=== PATIENT | female | born 1950 | race Caucasian/White ===

== ENCOUNTER 2016-10-17 07:18 | Inpatient (IN) | payer MEDICARE, OTHER ==
[2016-10-17] MEDS ORDERED: IPRATROPIUM/ALBUTEROL 0.5-2.5 MG/3 ML AMPUL NEB ONE ×2 (07:52→07:53)
--- NOTE | 2016-10-17 07:52 | ER Document Report ---
ED General - General Chief Complaint: Nausea Stated Complaint: NAUSEA/COUGH Time Seen by Provider: 10/17/16 07:34 Mode of Arrival: Ambulatory Information source: Patient Notes: 66-year-old female presents with recent diagnosis of bronchitis for which she was placed on initially Bactrim and then Cipro by her primary care physician. Patient admits to multiple episodes of nausea vomiting denies any chest pain admits shortness of breath TRAVEL OUTSIDE OF THE [place] IN LAST 30 DAYS: No - HPI Onset: Other - Three-day duration Onset/Duration: Persistent Quality of pain: No pain Severity: Moderate Pain Level: Denies Associated symptoms: Nonproductive cough, Fever, Shortness of breath Exacerbated by: Denies Relieved by: Denies Similar symptoms previously: Yes Recently seen / treated by doctor: Yes - Related Data Allergies/Adverse Reactions: Cephalosporins Allergy (Verified 10/17/16 07:22) Hives codeine [Codeine] Allergy (Verified 10/17/16 07:22) VOMITTING Past Medical History - Social History Smoking Status: Never Smoker Cigarette use (# per day): No Chew tobacco use (# tins/day): No Smoking Education Provided: No Family History: Reviewed & Not Pertinent Patient has suicidal ideation: No Patient has homicidal ideation: No - Past Medical History Cardiac Medical History: Reports: Hx Hypertension Denies: Hx Heart Attack Pulmonary Medical History: Denies: Hx Asthma Neurological Medical History: Denies: Hx Cerebrovascular Accident, Hx Seizures Renal/ Medical History: Denies: Hx Peritoneal Dialysis GI Medical History: Denies: Hx Hepatitis, Hx Hiatal Hernia, Hx Ulcer Infectious Medical History: Denies: Hx Hepatitis Past Surgical History: Denies: Hx Hysterectomy, Hx Mastectomy, Hx Open Heart Surgery, Hx Pacemaker Review of Systems - Review of Systems Notes: PHYSICAL EXAMINATION: GENERAL: Well-appearing, well-nourished and in no acute distress. HEAD: Atraumatic, normocephalic. EYES: Pupils equal round and reactive to light, extraocular movements intact, conjunctiva are normal. ENT: Nares patent, oropharynx clear without exudates. Moist mucous membranes. NECK: Normal range of motion, supple without lymphadenopathy LUNGS: Coarse wheezing all throughout HEART: Regular rate and rhythm without murmurs ABDOMEN: Soft, nontender, nondistended abdomen. No guarding, no rebound. No masses appreciated. Female : deferred Musculoskeletal: Normal range of motion, no pitting or edema. No cyanosis. NEUROLOGICAL: Cranial nerves grossly intact. Normal speech, normal gait. Normal sensory, motor exams PSYCH: Normal mood, normal affect. SKIN: Warm, Dry, normal turgor, no rashes or lesions noted. Physical Exam - Vital signs Vitals: Temp Pulse Resp BP Pulse Ox 97.4 F 77 24 H 221/156 H 93 10/17/16 07:24 10/17/16 07:24 10/17/16 07:24 10/17/16 07:24 10/17/16 07:24 Course - Re-evaluation Re-evalutation: 10/17/16 07:52 Patient is noted to be hypertensive, was placed on cardiac monitoring noted to have very peaked T waves, EKG was emergently ordered 10/17/16 09:01 10/17/16 09:02 Patient's potassium was not elevated, I am unsure of the cause of the peak T waves with the patient does not have any chest pain. She is noted to be severely hyponatremic, with nausea vomiting and pneumonia and hypoxemia I will admit the patient to the hospital service - Vital Signs Vital signs: Temp Pulse Resp BP Pulse Ox 97.4 F 77 24 H 221/156 H 93 10/17/16 07:24 10/17/16 07:24 10/17/16 07:24 10/17/16 07:24 10/17/16 07:24 - Laboratory Result Diagrams: 10/17/16 08:05 10/17/16 08:05 Laboratory results interpreted by me: 10/17/16 10/17/16 10/17/16 08:05 08:05 08:05 WBC 10.8 H Hgb 15.6 H Seg Neutrophils % 84.9 H Lymphocytes % 7.3 L Absolute Neutrophils 9.2 H Sodium 116.6 L* Chloride 74 L BUN 6 L Glucose 216 H AST 63 H Creatine Kinase 158 H CK-MB (CK-2) 5.51 H Total Protein 8.3 H - Diagnostic Test Radiology reviewed: Image reviewed, Reports reviewed - Pneumonia - EKG Interpretation by Me EKG shows normal: Sinus rhythm, [place], Intervals, QRS Complexes, ST-T Waves - Very peaked and elevated T waves noted all throughout When compared to previous EKG there are: Previous EKG unavailable Critical Care Note - Critical Care Note Total time excluding time spent on procedures (mins): 40 Comments: minutes of critical care time spent in direct contact evaluating and reevaluating the patient, treating symptoms, reviewing labs and studies and speaking with family and consultants excluding any procedures Discharge - Discharge Clinical Impression: peaked T waves, Hyponatremia Hypertension Qualifiers: Hypertension type: essential hypertension Qualified Code(s): I10 - Essential ( primary) hypertension Pneumonia Qualifiers: Pneumonia type: due to unspecified organism Laterality: right Lung location: lower lobe of lung Qualified Code(s): J18.1 - Lobar pneumonia, unspecified organism Nausea and vomiting Qualifiers: Vomiting type: unspecified Vomiting Intractability: non-intractable Qualified Code(s): R11.2 - Nausea with vomiting, unspecified Condition: Stable Disposition: ADMITTED INPATIENT Admitting Provider: Hospitalist Unit Admitted: Telemetry
[2016-10-17] MEDS ORDERED: NORMAL SALINE 1000 ML 1,000 ML IV ONE (07:53)
[2016-10-17] MEDS ORDERED: ONDANSETRON HCL INJ/PF 4 MG/2 ML SDV IV ONE (07:53)
[2016-10-17 08:22] LABS: ABSOLUTE LYMPHOCYTES (AUTO) 0.8 10^3/uL (0.5-4.7); ABSOLUTE MONOCYTES (AUTO) 0.8 10^3/uL (0.1-1.4); ABSOLUTE NEUT (AUTO) 9.2 10^3/uL (1.7-8.2); BASOPHILS % (AUTO) 0.5 % (0-2); EOSINOPHILS % (AUTO) 0.1 % (0-6); HEMATOCRIT 44.9 % (36.0-47.0); HEMOGLOBIN 15.6 g/dL (12.0-15.5); HGB HCT DIFFERENCE 1.9; LYMPHOCYTES % (AUTO) 7.3 % (13-45); MEAN CORPUSCULAR HEMOGLOBIN 31.5 pg (27.0-33.4); MEAN CORPUSCULAR HGB CONC 34.7 g/dL (32.0-36.0); MEAN CORPUSCULAR VOLUME 91 fl (80-97); MONOCYTES % (AUTO) 7.2 % (3-13); RED BLOOD COUNT 4.95 10^6/uL (3.72-5.28); RED CELL DISTRIBUTION WIDTH 12.8 % (11.5-14.0); SEGMENTED NEUTROPHILS % (AUTO) 84.9 % (42-78); WHITE BLOOD COUNT 10.8 10^3/uL (4.0-10.5)
[2016-10-17 08:35] LABS: ALANINE AMINOTRANSFERASE 48 U/L (9-52); ALBUMIN 4.7 g/dL (3.5-5.0); ALKALINE PHOSPHATASE 113 U/L (38-126); ANION GAP 17 (5-19); ASPARTATE AMINO TRANSFERASE 63 U/L (14-36); BILIRUBIN,DIRECT 0.4 mg/dL (0.0-0.4); BILIRUBIN,TOTAL 0.9 mg/dL (0.2-1.3); BLOOD UREA NITROGEN 6 mg/dL (7-20); CARBON DIOXIDE 26 mmol/L (22-30); CHLORIDE 74 mmol/L (98-107); CREATINE KINASE 158 U/L (30-135); CREATININE RESULT 0.52 mg/dL (0.52-1.25); GLUCOSE 216 mg/dL (75-110); POTASSIUM 4.7 mmol/L (3.6-5.0); TOTAL PROTEIN 8.3 g/dL (6.3-8.2)
[2016-10-17 08:38] LABS: SODIUM 116.6 mmol/L (137-145)
[2016-10-17] MEDS ORDERED: NORMAL SALINE 1000 ML 1,000 ML IV PRN (08:39)
[2016-10-17 08:47] LABS: CREATINE KINASE MB 5.51 ng/mL (<4.55); TROPONIN I < 0.012 ng/mL
[2016-10-17] MEDS ORDERED: LEVOFLOXACIN 750 MG/D5W RTU 150 ML IV ONE (09:02)
[2016-10-17] MEDS ORDERED: ALBUTEROL SULFATE 0.083% NEB 2.5 MG/3 ML AMPUL NEB PRN (09:19)
[2016-10-17] MEDS ORDERED: HYDRALAZINE HCL INJ/PF 20 MG/1 ML SDV IV PRN (09:20)
[2016-10-17] MEDS ORDERED: HYDRALAZINE HCL INJ/PF 20 MG/1 ML SDV IV ONE (09:20)
[2016-10-17] MEDS ORDERED: ACETAMINOPHEN 325 MG TABLET PO PRN (09:22)
[2016-10-17] MEDS ORDERED: LISINOPRIL 10 MG TABLET PO SCH (10:00)
[2016-10-17 10:09] LABS: FREE T3 4.33 pg/mL (2.77-5.27)
[2016-10-17] MEDS: POTASSI CL 40 MEQ/NS 1L 1,000 ML IV PRN ×2 (10:10→19:49)
[2016-10-17 10:22] LABS: THYROID STIMULATING HORMONE 2.77 uIU/mL (0.47-4.68)
[2016-10-17] MEDS ORDERED: LORAZEPAM INJ 2 MG/1 ML VIAL IV ONE (11:09)
[2016-10-17] MEDS: DOXYCYCLINE HYCLATE 100 MG TABLET PO SCH ×2 (11:23→21:34)
[2016-10-17] MEDS: METOPROLOL SUCCINATE 50 MG TAB.SR.24H PO SCH ×2 (11:24→21:34)
[2016-10-17] MEDS ORDERED: DEXTROSE 40% GEL 15 GM TUBE PO PRN ×2 (14:29)
[2016-10-17] MEDS ORDERED: INSULIN LISPRO 100 UNIT/ML 3 ML VIAL SUBCUT PRN (14:29)
[2016-10-17] MEDS ORDERED: DEXTROSE 50%-WATER 25 GM/50 ML DISP.SYRIN IV PRN ×2 (14:29)
[2016-10-17] MEDS ORDERED: GLUCAGON,HUMAN RECOMB 1 MG INJ IM PRN (14:29)
--- NOTE | 2016-10-17 14:31 | PDOC H&P ---
History of Present Illness Admission Date/PCP: 10/17/16 09:22 PRATIMA GRAJEDA MD Patient complains of: Nausea and vomiting History of Present Illness: ELEAZAR MILLER is a 66 year old female that presents to the emergency department for nausea and vomiting. Patient has been sick for the past week with bronchitis. She was treated on Sunday with Bactrim and states that she took 1 pill and this made her feel "sick" so this was discontinued. She was then started on Cipro. She has felt worse despite treatment with this antibiotic. 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 Patient was noted to have slightly elevated CK and CK-MB level. Troponin was normal. EKG showed no ST elevation or depression. Patient denied chest pain. She is having shortness of breath secondary to acute bronchitis. He is also presenting with nausea and vomiting. Past Medical History Cardiac Medical History: Reports: Hypertension Denies: Myocardial Infarction Pulmonary Medical History: Denies: Asthma Neurological Medical History: Denies: Seizures GI Medical History: Denies: Hepatitis, Hiatal Hernia Hematology: Denies: Anemia, Sickle Cell Disease Past Surgical History Past Surgical History: Denies: Amputation, Hysterectomy, Mastectomy, Pacemaker Social History Information Source: Patient Lives with: Spouse/Significant other Smoking Status: Current Every Day Smoker Frequency of Alcohol Use: None Hx Recreational Drug Use: No Hx Prescription Drug Abuse: No - Advance Directive Resuscitation Status: Full Code Family History Family History: Reviewed & Not Pertinent Parental Family History Reviewed: Yes Children Family History Reviewed: Yes Sibling(s) Family History Reviewed.: Yes Medication/Allergy Home Medications: Cholecalciferol (Vitamin D3) [Vitamin D3 1000 Unit Tablet] 1,000 unit PO DAILY 09/30/12 Diphenhydramine HCl [Benadryl 25 Mg Capsule] 25 mg PO BID 09/30/12 Enalapril Maleate [Vasotec 20 mg Tablet] 20 mg PO DAILY 09/30/12 Metoprolol Succinate [Toprol XL 100 mg Tablet] 100 mg PO DAILY 09/30/12 Allergies/Adverse Reactions: Cephalosporins Allergy (Verified 10/17/16 07:22) Hives codeine [Codeine] Allergy (Verified 10/17/16 07:22) VOMITTING Corticosteroids (Glucocorticoids) Adverse Reaction (Intermediate, Verified 10/17 14:03) Psychosis Review of Systems Constitutional: ABSENT: chills, fever(s), headache(s), weight gain, weight loss Eyes: ABSENT: visual disturbances Ears: ABSENT: hearing changes Cardiovascular: PRESENT: dyspnea on exertion. ABSENT: chest pain, edema, orthropnea, palpitations Respiratory: PRESENT: cough, dyspnea. ABSENT: hemoptysis Gastrointestinal: ABSENT: abdominal pain, constipation, diarrhea, hematemesis, hematochezia, nausea, vomiting Genitourinary: ABSENT: dysuria, hematuria Musculoskeletal: ABSENT: joint swelling Integumentary: ABSENT: rash, wounds Neurological: ABSENT: abnormal gait, abnormal speech, confusion, dizziness, focal weakness, syncope Psychiatric: ABSENT: anxiety, depression, homidical ideation, suicidal ideation Endocrine: ABSENT: cold intolerance, heat intolerance, polydipsia, polyuria Hematologic/Lymphatic: ABSENT: easy bleeding, easy bruising Physical Exam Vital Signs: Temp Pulse Resp BP Pulse Ox 97.4 F 72 22 H 135/84 H 96 10/17/16 07:24 10/17/16 13:43 10/17/16 13:43 10/17/16 12:01 10/17/16 13:43 PHYSICAL EXAM: GENERAL: Appears well, no acute distress HEENT: Normocephalic, no scleral icterus, conjunctiva clear, EOEM intact, PERRLA , moist mucous membranes NECK: trachea midline, no thyromegally RESPIRATORY: Bilateral wheezes CARDIAC: Regular rate and rhythm, no murmur/cinthia/rub ABDOMEN: Soft, no distension, no tenderness, no guarding, normal bowel sounds, negative Perez sign RECTAL: deferred : deferred EXTREMITIES: No edema, cyanosis, clubbing MUSCULOSKELETAL: No joint swelling or deformity VASCULAR: normal peripheral pulses NEUROLOGIC: Alert, oriented to person/place/time, normal speech, cranial nerves grossly intact, 5/5 strength in all extremities, tactile sensation intact in all extremities SKIN: No rash, no wounds, no worrisome skin lesions PSYCHIATRIC: Normal mood, normal affect Results Laboratory Results: Labs- All tests 24 hr 10/17/16 10/17/16 10/17/16 08:05 08:05 08:05 WBC 10.8 H RBC 4.95 Hgb 15.6 H Hct 44.9 MCV 91 MCH 31.5 MCHC 34.7 RDW 12.8 Plt Count 343 Seg Neutrophils % 84.9 H Lymphocytes % 7.3 L Monocytes % 7.2 Eosinophils % 0.1 Basophils % 0.5 Absolute Neutrophils 9.2 H Absolute Lymphocytes 0.8 Absolute Monocytes 0.8 Absolute Eosinophils 0.0 Absolute Basophils 0.0 Sodium 116.6 L* Potassium 4.7 Chloride 74 L Carbon Dioxide 26 Anion Gap 17 BUN 6 L Creatinine 0.52 Est GFR ( Amer) > 60 Est GFR (Non-Af Amer) > 60 Glucose 216 H Calcium 10.0 Total Bilirubin 0.9 Direct Bilirubin 0.4 Indirect Bilirubin Not Reportable Neonat Total Bilirubin Not Reportable AST 63 H ALT 48 Alkaline Phosphatase 113 Creatine Kinase 158 H CK-MB (CK-2) 5.51 H Troponin I < 0.012 Total Protein 8.3 H Albumin 4.7 TSH Free T4 Free T3 pg/mL 10/17/16 08:05 WBC RBC Hgb Hct MCV MCH MCHC RDW Plt Count Seg Neutrophils % Lymphocytes % Monocytes % Eosinophils % Basophils % Absolute Neutrophils Absolute Lymphocytes Absolute Monocytes Absolute Eosinophils Absolute Basophils Sodium Potassium Chloride Carbon Dioxide Anion Gap BUN Creatinine Est GFR ( Amer) Est GFR (Non-Af Amer) Glucose Calcium Total Bilirubin Direct Bilirubin Indirect Bilirubin Neonat Total Bilirubin AST ALT Alkaline Phosphatase Creatine Kinase CK-MB (CK-2) Troponin I Total Protein Albumin TSH 2.77 Free T4 1.79 Free T3 pg/mL 4.33 Impressions: Chest/Abdomen CTA 10/17/16 00:00 IMPRESSION: No CT angio evidence of acute pulmonary emboli or thoracic aortic dissection Obstructive lung disease Chest X-Ray 10/17/16 07:34 IMPRESSION: Obstructive lung disease Left lower lateral rib fractures age indeterminate Assessment & Plan - Diagnosis (1) Hyponatremia Is this a current diagnosis for this admission?: YesPlan: Patient likely has symptomatic hyponatremia. I will discontinue spironolactone as this is the only potential causative medication. Administer normal saline. Follow-up chemistry panels. CTA of chest negative for mass lesion. TSH normal. (2) Nausea & vomiting Qualifiers: Vomiting type: unspecified Vomiting Intractability: non-intractable Qualified Code(s): R11.2 - Nausea with vomiting, unspecified Is this a current diagnosis for this admission?: YesPlan: Possibly secondary to symptomatic hyponatremia. That being said patient has elevated CK and CK-MB levels. I would like to repeat cardiac enzymes every 6 hours 3 sets. (3) Abnormal cardiac enzyme level Is this a current diagnosis for this admission?: YesPlan: Repeat EKG and cardiac enzymes. Consult Dr. Salomon of cardiology. (4) Acute bronchitis Is this a current diagnosis for this admission?: YesPlan: Doxycycline. Pulmicort. Scheduled duo nebs. When necessary albuterol nebulized treatment. (5) Hyperglycemia Is this a current diagnosis for this admission?: YesPlan: Place patient on Accu-Cheks and sliding scale insulin. Check hemoglobin A1c. (6) Hypertension Qualifiers: Hypertension type: essential hypertension Qualified Code(s): I10 - Essential (primary) hypertension Is this a current diagnosis for this admission?: YesPlan: Continue metoprolol and enalapril. Discontinue spironolactone secondary to hyponatremia. - Time Time Spent: Greater than 70 Minutes
[2016-10-17 15:40] LABS: CREATINE KINASE MB 8.7 ng/mL (<4.55); TROPONIN I 0.024 ng/mL
[2016-10-17] MEDS: IPRATROPIUM/ALBUTEROL 0.5-2.5 MG/3 ML AMPUL NEB SCH (19:50)
[2016-10-17] MEDS: ONDANSETRON HCL INJ/PF 4 MG/2 ML SDV IV PRN (20:00)
[2016-10-17] MEDS: BUDESONIDE NEB 0.5 MG/2 ML AMPUL NEB SCH (20:01)
[2016-10-17 20:08] LABS: ANION GAP 10 (5-19); BLOOD UREA NITROGEN 5 mg/dL (7-20); CALCIUM 8.5 mg/dL (8.4-10.2); CARBON DIOXIDE 25 mmol/L (22-30); CHLORIDE 84 mmol/L (98-107); CREATININE RESULT 0.55 mg/dL (0.52-1.25); GLUCOSE 115 mg/dL (75-110); POTASSIUM 5.4 mmol/L (3.6-5.0)
[2016-10-17 20:16] LABS: SODIUM 118.5 mmol/L (137-145)
[2016-10-17 20:17] LABS: CREATINE KINASE MB 8.37 ng/mL (<4.55); TROPONIN I 0.022 ng/mL
--- NOTE | 2016-10-17 22:14 | EKG REPORT ---
SEVERITY:- BORDERLINE ECG - SINUS RHYTHM BORDERLINE R WAVE PROGRESSION, ANTERIOR LEADS : Confirmed by: Radha Kirby MD 17-Oct-2016 22:13:51
[2016-10-17] MEDS: NORMAL SALINE 1000 ML 1,000 ML IV PRN (22:41)
--- NOTE | 2016-10-17 22:50 | PDOC CONSULTATION ---
Consultation Consult Date: 10/17/16 Attending physician:: DEBORA BELTRE Consult reason:: Dyspnea, hypoxemia, abnormal cardiac enzymes History of Present Illness Admission Date/PCP: 10/17/16 09:22 PRATIMA GRAJEDA MD Patient complains of: Dyspnea History of Present Illness: ELEAZAR MILLER is a 66 year old female admitted through the emergency department for nausea and vomiting. Patient has been sick for the past week with bronchitis. She was treated on Sunday with Bactrim and states that she took 1 pill and this made her feel "sick" so this was discontinued. She was then started on Cipro. She has felt worse despite treatment with this antibiotic. 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 Patient has noted increasing dyspnea and also cough. Also noted increasing wheezing. Patient was noted to have slightly elevated CK and CK-MB level. Troponin was normal. EKG showed no ST elevation or depression. Patient denied chest pain. She is having shortness of breath secondary to acute exacerbation of underlying pulmonary disease. She is also presenting with nausea and vomiting. I was asked to evaluate patient because of abnormal cardiac enzymes and dyspnea. Past Medical History Cardiac Medical History: Reports: Hypertension Denies: Myocardial Infarction Pulmonary Medical History: Reports: Chronic Obstructive Pulmonary Disease (COPD) Denies: Asthma Neurological Medical History: Denies: Seizures GI Medical History: Denies: Hepatitis, Hiatal Hernia Hematology: Denies: Anemia, Sickle Cell Disease Past Surgical History Past Surgical History: Denies: Amputation, Hysterectomy, Mastectomy, Pacemaker Social History Information Source: Patient Lives with: Spouse/Significant other Smoking Status: Current Every Day Smoker Cigarettes Packs Per Day: 0.5 Number of Years Smokin Last Time Smoked: 10/16/16 Frequency of Alcohol Use: None Hx Recreational Drug Use: No Hx Prescription Drug Abuse: No - Advance Directive Resuscitation Status: Full Code Family History Family History: Reviewed & Not Pertinent Parental Family History Reviewed: Yes Children Family History Reviewed: Yes Sibling(s) Family History Reviewed.: Yes Medication/Allergy Home Medications: Enalapril Maleate [Vasotec 20 mg Tablet] 20 mg PO DAILY 09/30/12 Metoprolol Succinate [Toprol XL 100 mg Tablet] 100 mg PO Q12 09/30/12 Montelukast Sodium [Singulair 10 mg Tablet] 10 mg PO QHS 10/18/16 Spironolactone [Aldactone 25 mg Tablet] 25 mg PO DAILY 10/18/16 Allergies/Adverse Reactions: Cephalosporins Allergy (Verified 10/17/16 07:22) Hives codeine [Codeine] Allergy (Verified 10/17/16 07:22) VOMITTING Corticosteroids (Glucocorticoids) Adverse Reaction (Intermediate, Verified 10/17 14:03) Psychosis Review of Systems Constitutional: ABSENT: chills, fever(s), headache(s), weight gain, weight loss Eyes: ABSENT: visual disturbances Ears: ABSENT: hearing changes Cardiovascular: PRESENT: dyspnea on exertion, edema, orthropnea. ABSENT: chest pain, palpitations Respiratory: PRESENT: as per HPI. ABSENT: cough, hemoptysis Gastrointestinal: ABSENT: abdominal pain, constipation, diarrhea, hematemesis, hematochezia, nausea, vomiting Genitourinary: ABSENT: dysuria, hematuria Musculoskeletal: ABSENT: joint swelling Integumentary: ABSENT: rash, wounds Neurological: ABSENT: abnormal gait, abnormal speech, confusion, dizziness, focal weakness, syncope Psychiatric: ABSENT: anxiety, depression, homidical ideation, suicidal ideation Endocrine: ABSENT: cold intolerance, heat intolerance, polydipsia, polyuria Hematologic/Lymphatic: ABSENT: easy bleeding, easy bruising Physical Exam Vital Signs: Temp Pulse Resp BP Pulse Ox 98.2 F 84 22 H 143/75 H 98 10/17/16 15:20 10/17/16 15:20 10/17/16 15:20 10/17/16 15:20 10/17/16 15:20 Intake & Output 10/16/16 10/17/16 10/18/16 06:59 06:59 06:59 Intake Total 870 Balance 870 Weight 46.8 kg General appearance: PRESENT: no acute distress, well-developed, well-nourished Head exam: PRESENT: atraumatic, normocephalic Eye exam: PRESENT: conjunctiva pink, EOMI, PERRLA. ABSENT: scleral icterus Ear exam: PRESENT: normal external ear exam Mouth exam: PRESENT: moist, tongue midline Neck exam: ABSENT: carotid bruit, JVD, lymphadenopathy, thyromegaly Respiratory exam: PRESENT: rales, rhonchi, wheezes - Bilateral, other - no dullness on percussion Cardiovascular exam: PRESENT: RRR, +S1, +S2, systolic murmur - 2/6 SIMONE aortic area. 1/6 jones systolic murmur mitral area.. ABSENT: diastolic murmur, gallop, rubs Pulses: PRESENT: normal dorsalis pedis pul Vascular exam: PRESENT: normal capillary refill GI/Abdominal exam: PRESENT: normal bowel sounds, soft. ABSENT: distended, guarding, mass, organolmegaly, rebound, tenderness Rectal exam: PRESENT: deferred Extremities exam: PRESENT: full ROM. ABSENT: calf tenderness, clubbing, pedal edema Neurological exam: PRESENT: alert, awake, oriented to person, oriented to place , oriented to time, oriented to situation, CN II-XII grossly intact. ABSENT: motor sensory deficit Psychiatric exam: PRESENT: appropriate affect, normal mood. ABSENT: homicidal ideation, suicidal ideation Skin exam: PRESENT: dry, intact, warm. ABSENT: cyanosis, rash Results Laboratory Results: 10/17/16 19:35 10/17/16 10/17/16 14:37 19:35 Sodium 118.5 L* Potassium 5.4 H Chloride 84 L Carbon Dioxide 25 Anion Gap 10 BUN 5 L Creatinine 0.55 Est GFR ( Amer) > 60 Est GFR (Non-Af Amer) > 60 Glucose 115 H Serum Osmolality 245 L Calcium 8.5 10/17/16 10/17/16 10/17/16 14:37 14:37 19:35 Creatine Kinase 273 H 288 H CK-MB (CK-2) 8.70 H Troponin I 0.024 10/17/16 19:35 Creatine Kinase CK-MB (CK-2) 8.37 H Troponin I 0.022 EKG Comments: NSR, No acute ST-T changes Impressions: Chest/Abdomen CTA 10/17/16 00:00 IMPRESSION: No CT angio evidence of acute pulmonary emboli or thoracic aortic dissection Obstructive lung disease Chest X-Ray 10/17/16 07:34 IMPRESSION: Obstructive lung disease Left lower lateral rib fractures age indeterminate Assessment & Plan - Diagnosis (1) Abnormal cardiac enzyme level Is this a current diagnosis for this admission?: Yes (2) Dyspnea Qualifiers: Dyspnea type: dyspnea on exertion Qualified Code(s): R06.09 - Other forms of dyspnea Is this a current diagnosis for this admission?: Yes (3) Hypertension Qualifiers: Hypertension type: essential hypertension Qualified Code(s): I10 - Essential (primary) hypertension Is this a current diagnosis for this admission?: Yes (4) Nausea & vomiting Qualifiers: Vomiting type: unspecified Vomiting Intractability: non-intractable Qualified Code(s): R11.2 - Nausea with vomiting, unspecified Is this a current diagnosis for this admission?: Yes (5) Hyponatremia Is this a current diagnosis for this admission?: Yes (6) Multiple fractures of ribs Qualifiers: Laterality: left Fracture healing: with delayed healing Is this a current diagnosis for this admission?: Yes - Notes Notes: Abnormal cardiac enzymes elevation most likely related to either rib fracture or respiratory muscle fatigue. 2 D echo ordered to evaluate dyspnea. Abnormal cardiac enzyme, this is most likely related to diaphragmatic fatigue, possible rib fracture. Troponin elevation unremarkable. Total CK and CK-MBs have elevated. Patient does have significant pulmonary issues at this point. Dyspnea: This is predominantly due to asthma/COPD exacerbation. BNP level, reviewed chest x-ray, 2D echocardiogram to rule out any CHF and cardiac cause of dyspnea. Hypertension: Blood pressure under reasonable control. Nausea vomiting: This is improved by patient. Hyponatremia: It is a significant problem. Most likely related to COPD exacerbation. Recommend fluid restriction. May consider tolvaptan therapy if sodium does not improve. Discussed with patient's . Management plans discussed with hospitalist and other involved personnel. - Time Time Spent: 30 to 50 Minutes - CODE STATUS was discussed, patient remains full code. Surrogate decision-maker's . Multiple medical problems were addressed. More than 50% of the time spent coordinating care, discussing management plans with involved caregivers. Management plans discussed with involved personnels. Medical decision making was of moderate to high complexity , patient's has multiple severe comorbidities. Medications reviewed and adjusted accordingly: Yes
[2016-10-17 23:23] LABS: ANION GAP 10 (5-19); BLOOD UREA NITROGEN 5 mg/dL (7-20); CALCIUM 8.8 mg/dL (8.4-10.2); CARBON DIOXIDE 26 mmol/L (22-30); CHLORIDE 84 mmol/L (98-107); CREATININE RESULT 0.59 mg/dL (0.52-1.25); GLUCOSE 116 mg/dL (75-110); POTASSIUM 5.3 mmol/L (3.6-5.0)
[2016-10-18 00:14] LABS: SODIUM 119.6 mmol/L (137-145)
[2016-10-18 01:54] LABS: ABSOLUTE MONOCYTES (AUTO) 0.8 10^3/uL (0.1-1.4); ABSOLUTE NEUT (AUTO) 7.2 10^3/uL (1.7-8.2); BASOPHILS % (AUTO) 0.2 % (0-2); HEMATOCRIT 37.9 % (36.0-47.0); HGB HCT DIFFERENCE 0.5; LYMPHOCYTES % (AUTO) 10.7 % (13-45); MEAN CORPUSCULAR HEMOGLOBIN 31.3 pg (27.0-33.4); MEAN CORPUSCULAR HGB CONC 33.9 g/dL (32.0-36.0); MEAN CORPUSCULAR VOLUME 92 fl (80-97); MONOCYTES % (AUTO) 9.4 % (3-13); RED CELL DISTRIBUTION WIDTH 12.9 % (11.5-14.0); SEGMENTED NEUTROPHILS % (AUTO) 79.7 % (42-78)
[2016-10-18 01:59] LABS: BLOOD UREA NITROGEN 5 mg/dL (7-20); CARBON DIOXIDE 25 mmol/L (22-30); CHLORIDE 84 mmol/L (98-107); CREATININE RESULT 0.53 mg/dL (0.52-1.25); GLUCOSE 111 mg/dL (75-110); POTASSIUM 5.4 mmol/L (3.6-5.0)
[2016-10-18 02:00] LABS: HEMOGLOBIN 12.8 g/dL (12.0-15.5)
[2016-10-18 02:01] LABS: ANION GAP 8 (5-19)
[2016-10-18 02:21] LABS: CREATINE KINASE MB 7.04 ng/mL (<4.55); TROPONIN I 0.015 ng/mL
[2016-10-18 02:25] LABS: SODIUM 117.3 mmol/L (137-145)
[2016-10-18] MEDS ORDERED: PROMETHAZINE HCL 25 MG SUPP.RECT PR PRN (03:10)
[2016-10-18 03:42] LABS: BLOOD UREA NITROGEN 5 mg/dL (7-20); CALCIUM 8.8 mg/dL (8.4-10.2); CARBON DIOXIDE 24 mmol/L (22-30); CHLORIDE 85 mmol/L (98-107); CREATININE RESULT 0.48 mg/dL (0.52-1.25); GLUCOSE 117 mg/dL (75-110); POTASSIUM 5.1 mmol/L (3.6-5.0)
[2016-10-18 03:48] LABS: ANION GAP 7 (5-19); SODIUM 115.9 mmol/L (137-145)
[2016-10-18] MEDS: ONDANSETRON HCL INJ/PF 4 MG/2 ML SDV IV PRN (04:02)
[2016-10-18] MEDS: ENOXAPARIN SODIUM INJ 40 MG/0.4 ML DISP.SYRIN SUBCUT SCH (08:00)
[2016-10-18] MEDS: BUDESONIDE NEB 0.5 MG/2 ML AMPUL NEB SCH ×2 (08:00→20:23)
[2016-10-18] MEDS: IPRATROPIUM/ALBUTEROL 0.5-2.5 MG/3 ML AMPUL NEB SCH ×2 (08:00→20:22)
[2016-10-18] MEDS: ENALAPRIL MALEATE 10 MG TABLET PO SCH (10:00)
[2016-10-18] MEDS: DOXYCYCLINE HYCLATE 100 MG TABLET PO SCH ×2 (10:00→22:22)
[2016-10-18] MEDS: METOPROLOL SUCCINATE 50 MG TAB.SR.24H PO SCH ×2 (10:00→22:22)
[2016-10-18] MEDS ORDERED: HYDRALAZINE HCL 25 MG TABLET ONE (12:48)
[2016-10-18] MEDS ORDERED: LORAZEPAM INJ 2 MG/1 ML VIAL ONE (12:54)
--- NOTE | 2016-10-18 17:18 | EKG REPORT ---
SEVERITY:- ABNORMAL ECG - SINUS ARRHYTHMIA, RATE 62-90 CONSIDER ANTERIOR INFARCT ABNORMAL T, CONSIDER ISCHEMIA, ANT-LAT LEADS VERSUS HYPERKALEMIA : Confirmed by: Radha Kirby MD 18-Oct-2016 09:11:31
--- NOTE | 2016-10-18 18:48 | XCELERA REPORT ---
[address] [address] Transthoracic Echocardiogram Report Name: ELEAZAR MLILER Age: 66 yrs Gender: Female : 1950 Patient Status: Inpatient Patient Location: [id number]\S\305\S\A Study Date: 10/18/2016 03:51 PM Height: 66 in Weight: 103 lb BSA: 1.5 m2 Procedure: A complete two-dimensional transthoracic echocardiogram was performed (2D, M-mode, spectral and color flow Doppler). The study was technically difficult with many images being suboptimal in quality. Reason For Study: abnormal cardiac enzymes Ordering Physician: Jose A Salomon Performed By: Dhiraj Moore Interpretation Summary The left ventricular ejection fraction is normal. Doppler measurements suggest pseudonormalized left ventricular relaxation, which is associated with grade II/IV or mild to moderate diastolic dysfunction There is mild concentric left ventricular hypertrophy. The left ventricle is grossly normal size. Wall motion cannot be accurately commented on, but no definite regional wall motion abnormalities noted. The right ventricular systolic function is normal. The right atrium is normal in size Borderline left atrial enlargement. There is no mitral valve stenosis. There is a trace amount of mitral regurgitation There is no aortic valve stenosis No aortic regurgitation is present. There is a mild amount of tricuspid regurgitation There is mild pulmonary hypertension by echo Right ventricular systolic pressure is estimated to be elevated at 40- 50mmHg. The aortic root is not well visualized but is probably normal size. The inferior vena cava appeared normal and decreased > 50% with respiration (RAP 5-10 mmHg) Minimal pericardial effusion. MMode/2D Measurements \T\ Calculations RVDd: 1.6 cm LVIDd: 3.7 cm FS: 46.8 % Ao root diam: 2.9 cm IVSd: 0.95 cm LVIDs: 2.0 cm EDV(Teich): 59.4 ml LVPWd: 0.91 cm ESV(Teich): 12.5 ml Ao root area: 6.5 cm2 EF(Teich): 79.0 % LA dimension: 2.6 cm Doppler Measurements \T\ Calculations MV E max mary: MV P1/2t max mary: Ao V2 max: LV V1 max P.8 cm/sec 80.5 cm/sec 92.3 cm/sec 2.7 mmHg MV A max mary: MV P1/2t: 51.4 msec Ao max PG: LV V1 max: 68.8 cm/sec 3.4 mmHg 81.8 cm/sec MV E/A: 1.1 MVA(P1/2t): 4.3 cm2 MV dec slope: 459.3 cm/sec2 PA V2 max: TR max mary: RAP systole: 91.6 cm/sec 276.6 cm/sec 10.0 mmHg PA max PG: TR max P.6 mmHg 3.4 mmHg RVSP(TR): 40.6 mmHg Left Ventricle The left ventricle is grossly normal size. There is mild concentric left ventricular hypertrophy. The left ventricular ejection fraction is normal. Doppler measurements suggest pseudonormalized left ventricular relaxation, which is associated with grade II/IV or mild to moderate diastolic dysfunction. Wall motion cannot be accurately commented on, but no definite regional wall motion abnormalities noted. Right Ventricle The right ventricle is grossly normal size. There is normal right ventricular wall thickness. The right ventricular systolic function is normal. Atria The right atrium is normal in size. Borderline left atrial enlargement. Interarterial septum not well visualized and not well dopplered. Cannot comment on ASD/PFO presence. Mitral Valve The mitral valve leaflets are sclerotic, but show no functional abnormalities. There is no mitral valve stenosis. There is a trace amount of mitral regurgitation. Aortic Valve The aortic valve is grossly normal. There is no aortic valve stenosis. No aortic regurgitation is present. Tricuspid Valve The tricuspid valve is not well visualized, but is grossly normal. There is no tricuspid stenosis. There is a mild amount of tricuspid regurgitation. There is mild pulmonary hypertension by echo. Right ventricular systolic pressure is estimated to be elevated at 40-50mmHg. Pulmonic Valve The pulmonic valve is not well visualized. Great Vessels The aortic root is not well visualized but is probably normal size. The inferior vena cava appeared normal and decreased > 50% with respiration (RAP 5-10 mmHg). Effusions Minimal pericardial effusion. : Jose A Salomon > Jose A Salomon
[2016-10-18] MEDS ORDERED: LORAZEPAM INJ 2 MG/1 ML VIAL IV PRN (20:06)
--- NOTE | 2016-10-18 21:39 | PDOC PROGRESS REPORT ---
Subjective Progress Note for:: 10/18/16 Subjective:: Patient still remains significantly short of breath but claims that she is somewhat better. On questioning patient denies any chest, neck discomfort. Patient denies any other significant discomfort. Vital signs are reviewed. Physical Exam Vital Signs: Temp Pulse Resp BP Pulse Ox 98.4 F 83 22 H 151/86 H 100 10/18/16 20:26 10/18/16 20:26 10/18/16 20:26 10/18/16 20:26 10/18/16 20:26 Intake & Output 10/17/16 10/18/16 10/19/16 06:59 06:59 06:59 Intake Total 990 Balance 990 Weight 47.5 kg Exam: GENERAL: well-nourished and in no acute distress. Alert and oriented x3 HEAD: Atraumatic, normocephalic. EYES: Pupils equal round and reactive to light, extraocular movements intact, sclera anicteric, conjunctiva are normal. ENT: TMs normal, nares patent, oropharynx clear without exudates. Moist mucous membranes. No oral ulcerations or bleeding gums noted NECK: supple without lymphadenopathy. Trachea is central. No cervical or axillary lymphadenopathy noted. Carotids are 2+, JVD WNL LUNGS: Respiration seems nonlabored, no significant accessory muscle action noted. Bilateral wheezing is noted. No dullness noted. CHEST: Palpation of the chest wall shows no significant chest wall tenderness. No other significant abnormalities noted. HEART: [employer] SAL[employer], No PSH, 1/6 SIMONE aortic area, 1/6 jones systolic murmur mitral area, no rubs, no gallops. ABDOMEN: Soft, no significant tenderness appreciated, normoactive bowel sounds. No guarding, no rebound. No rigidity noted . No masses appreciated. EXTREMITIES: Pedal pulses are 1-2+, no calf tenderness noted. No clubbing or cyanosis.trace pedal edema noted NEUROLOGICAL: Focused neurological exam showed no significant neurologic deficit. Normal speech, no focal weakness appreciated. PSYCH: Normal mood, normal affect. Judgment and insight within normal limits. SKIN: No significant ecchymosis, rash, ulcerations or signs of pruritus noted. MUSCULOSKELETAL EXAM: No significant joint swelling noted. Results Laboratory Results: 10/18/16 01:35 10/18/16 03:21 10/17/16 10/18/16 10/18/16 22:50 01:35 01:35 WBC 9.0 RBC 4.10 Hgb 12.8 D Hct 37.9 MCV 92 MCH 31.3 MCHC 33.9 RDW 12.9 Plt Count 258 Seg Neutrophils % 79.7 H Lymphocytes % 10.7 L Monocytes % 9.4 Eosinophils % 0.0 Basophils % 0.2 Absolute Neutrophils 7.2 Absolute Lymphocytes 1.0 Absolute Monocytes 0.8 Absolute Eosinophils 0.0 Absolute Basophils 0.0 Sodium 119.6 L* 117.3 L* Potassium 5.3 H 5.4 H Chloride 84 L 84 L Carbon Dioxide 26 25 Anion Gap 10 8 BUN 5 L 5 L Creatinine 0.59 0.53 Est GFR ( Amer) > 60 > 60 Est GFR (Non-Af Amer) > 60 > 60 Glucose 116 H 111 H Calcium 8.8 9.0 10/18/16 03:21 WBC RBC Hgb Hct MCV MCH MCHC RDW Plt Count Seg Neutrophils % Lymphocytes % Monocytes % Eosinophils % Basophils % Absolute Neutrophils Absolute Lymphocytes Absolute Monocytes Absolute Eosinophils Absolute Basophils Sodium 115.9 L* Potassium 5.1 H Chloride 85 L Carbon Dioxide 24 Anion Gap 7 BUN 5 L Creatinine 0.48 L Est GFR ( Amer) > 60 Est GFR (Non-Af Amer) > 60 Glucose 117 H Calcium 8.8 10/17/16 10/17/16 10/17/16 14:37 14:37 19:35 Creatine Kinase 273 H 288 H CK-MB (CK-2) 8.70 H Troponin I 0.024 NT-Pro-B Natriuret Pep 10/17/16 10/18/16 10/18/16 19:35 01:35 01:35 Creatine Kinase 297 H CK-MB (CK-2) 8.37 H 7.04 H Troponin I 0.022 0.015 NT-Pro-B Natriuret Pep 10/18/16 01:35 Creatine Kinase CK-MB (CK-2) Troponin I NT-Pro-B Natriuret Pep 3280 H Impressions: Chest/Abdomen CTA 10/17/16 00:00 IMPRESSION: No CT angio evidence of acute pulmonary emboli or thoracic aortic dissection Obstructive lung disease Chest X-Ray 10/17/16 07:34 IMPRESSION: Obstructive lung disease Left lower lateral rib fractures age indeterminate Assessment & Plan - Diagnosis (1) Abnormal cardiac enzyme level Is this a current diagnosis for this admission?: Yes (2) Dyspnea Qualifiers: Dyspnea type: dyspnea on exertion Qualified Code(s): R06.09 - Other forms of dyspnea Is this a current diagnosis for this admission?: Yes (3) Hypertension Qualifiers: Hypertension type: essential hypertension Qualified Code(s): I10 - Essential (primary) hypertension Is this a current diagnosis for this admission?: Yes (4) Nausea & vomiting Qualifiers: Vomiting type: unspecified Vomiting Intractability: non-intractable Qualified Code(s): R11.2 - Nausea with vomiting, unspecified Is this a current diagnosis for this admission?: Yes (5) Hyponatremia Is this a current diagnosis for this admission?: Yes (6) Multiple fractures of ribs Qualifiers: Laterality: left Fracture healing: with delayed healing Is this a current diagnosis for this admission?: Yes (7) Congestive heart failure Qualifiers: Congestive heart failure type: diastolic Congestive heart failure chronicity: acute on chronic Qualified Code(s): I50.33 - Acute on chronic diastolic (congestive) heart failure Is this a current diagnosis for this admission?: Yes (8) Pulmonary hypertension Is this a current diagnosis for this admission?: Yes - Notes Notes: Abnormal cardiac enzyme, this is most likely related to diaphragmatic fatigue, possible rib fracture. Troponin elevation unremarkable. Total CK and CK-MBs have elevated. Patient does have significant pulmonary issues at this point therefore will consider a stress test as an outpatient. This was explained to the patient's family. Dyspnea: This is predominantly due to asthma/COPD exacerbation. Hypertension: Blood pressure under reasonable control. Nausea vomiting: This is improved by patient. Hyponatremia: This is stable sodium is noted to be 115. Tolvaptan therapy needs to be considered Congestive heart failure: BNP level is elevated. This is felt to be related to RV strain but cannot rule out right heart failure. Based on clinical evaluation feel that patient most likely had right-sided heart failure. There is however could be an element of diastolic dysfunction. Pulmonary hypertension: Noted on echo most likely related to underlying pulmonary status and condition. Possibly also related to chronic diastolic dysfunction. Chest x-ray was reviewed. Patient has significant air trapping in the lung, with suggestion of significant emphysema. Cannot rule out small bilateral pleural effusion. Will start patient on small dose of Lasix p.o. Discussed that patient would benefit from evaluation for need chronic oxygen therapy. This can be done as an outpatient. - Time Time with patient: Greater than 35 minutes - CODE STATUS was discussed, patient remains full code. Surrogate decision-maker patient . Multiple medical problems were addressed. More than 50% of the time spent coordinating care, discussing management plans with involved caregivers. Discussed that patient's symptoms are predominantly related to pulmonary condition point. Management plans discussed with involved personnels. Medical decision making was of moderate to high complexity, patient's has multiple severe comorbidities. 2D echo results discussed. Medications reviewed and adjusted accordingly: Yes
[2016-10-18] MEDS: HYDRALAZINE HCL 25 MG TABLET PO SCH (22:22)
[2016-10-18 22:35] LABS: ANION GAP 8 (5-19); BLOOD UREA NITROGEN 6 mg/dL (7-20); CALCIUM 8.5 mg/dL (8.4-10.2); CARBON DIOXIDE 29 mmol/L (22-30); CHLORIDE 81 mmol/L (98-107); CREATININE RESULT 0.56 mg/dL (0.52-1.25); GLUCOSE 96 mg/dL (75-110); POTASSIUM 4.4 mmol/L (3.6-5.0)
[2016-10-18 22:40] LABS: SODIUM 117.5 mmol/L (137-145)
[2016-10-19 02:38] LABS: BLOOD UREA NITROGEN 6 mg/dL (7-20); CALCIUM 8.3 mg/dL (8.4-10.2); CARBON DIOXIDE 28 mmol/L (22-30); CHLORIDE 84 mmol/L (98-107); GLUCOSE 88 mg/dL (75-110); POTASSIUM 4.2 mmol/L (3.6-5.0)
[2016-10-19 02:40] LABS: ANION GAP 6 (5-19)
[2016-10-19 02:48] LABS: SODIUM 118.1 mmol/L (137-145)
[2016-10-19] MEDS: NORMAL SALINE 1000 ML 1,000 ML IV PRN (04:46)
[2016-10-19 06:40] LABS: ABSOLUTE MONOCYTES (AUTO) 0.9 10^3/uL (0.1-1.4); ABSOLUTE NEUT (AUTO) 4.6 10^3/uL (1.7-8.2); BASOPHILS % (AUTO) 0.6 % (0-2); EOSINOPHILS % (AUTO) 0.2 % (0-6); HEMATOCRIT 33.1 % (36.0-47.0); HEMOGLOBIN 11.5 g/dL (12.0-15.5); HGB HCT DIFFERENCE 1.4; LYMPHOCYTES % (AUTO) 14.9 % (13-45); MEAN CORPUSCULAR HEMOGLOBIN 31.7 pg (27.0-33.4); MEAN CORPUSCULAR HGB CONC 34.8 g/dL (32.0-36.0); MEAN CORPUSCULAR VOLUME 91 fl (80-97); MONOCYTES % (AUTO) 13.8 % (3-13); RED BLOOD COUNT 3.64 10^6/uL (3.72-5.28); RED CELL DISTRIBUTION WIDTH 12.5 % (11.5-14.0); SEGMENTED NEUTROPHILS % (AUTO) 70.5 % (42-78); WHITE BLOOD COUNT 6.5 10^3/uL (4.0-10.5)
[2016-10-19 06:57] LABS: ANION GAP 8 (5-19); BLOOD UREA NITROGEN 6 mg/dL (7-20); CALCIUM 8.4 mg/dL (8.4-10.2); CARBON DIOXIDE 28 mmol/L (22-30); CHLORIDE 85 mmol/L (98-107); CREATININE RESULT 0.52 mg/dL (0.52-1.25); GLUCOSE 87 mg/dL (75-110); POTASSIUM 4.2 mmol/L (3.6-5.0); SODIUM 121.3 mmol/L (137-145)
[2016-10-19] MEDS: HYDRALAZINE HCL 25 MG TABLET PO SCH ×3 (06:57→21:42)
[2016-10-19] MEDS: ENOXAPARIN SODIUM INJ 40 MG/0.4 ML DISP.SYRIN SUBCUT SCH (08:29)
[2016-10-19] MEDS: ONDANSETRON HCL INJ/PF 4 MG/2 ML SDV IV PRN (08:29)
--- NOTE | 2016-10-19 08:32 | PROGRESS NOTE E ---
Progress Note NAME: ELEAZAR MILLER : 1950 AGE: 66Y DATE: 10/18/2016 ROOM: 305 TIME SPENT MANAGING PATIENT: Twenty-five minutes. SUBJECTIVE: The patient has continued shortness of breath that is not much improved from yesterday. She is also complaining of anxiety and would like something for this. She has no chest pain. She has some nausea, no vomiting. She has no fevers or chills, headache, focal weakness or numbness, abdominal pain. OBJECTIVE: VITAL SIGNS: Temperature 97.7. Blood pressure 185/98. Pulse 78. Respirations 17. O2 saturation is 100% on 2 liters nasal cannula. GENERAL: She is alert, oriented, in no acute distress. HEENT: Oropharynx has moist mucous membranes. Sclera is nonicteric. RESPIRATORY: She has inspiratory and expiratory wheezes but fair air excursion. CARDIAC: Regular rate/rhythm. No murmurs, gallops, or rubs. ABDOMEN: Soft, nontender, nondistended. Positive bowel sounds. No rebound or guarding. EXTREMITIES: Have no edema, cyanosis, clubbing. NEUROLOGIC: Cranial nerves intact. She has good strength in all 4 extremities. LABORATORIES: Urinalysis is unremarkable for infection. ASSESSMENT AND PLAN: 1. HYPOXEMIC RESPIRATORY FAILURE. Continue oxygen supplementation, wean off as tolerated. 2. ACUTE EXACERBATION OF COPD. Continue Pulmicort and bronchodilators. 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 Continue antibiotics. 3. HYPONATREMIA. Continue normal saline. If this does not start to correct, we may consider consulting Nephrology tomorrow. 4. ANXIETY. Ativan p.r.n. 5. HYPERTENSION. Continue current medications. I wanted to add Norvasc, but the patient states she has had an adverse reaction in the form of lower extremity swelling on this medication. I will start hydralazine 25 mg 3 times a day. DICTATING PHYSICIAN: DEBORA BELTRE M.D. [id number] PHY#: [id number] ID: [id number] JOB#: [id number] ACCT: [id number] cc:DEBORA BELTRE >
[2016-10-19] MEDS: BUDESONIDE NEB 0.5 MG/2 ML AMPUL NEB SCH ×2 (09:00→19:57)
[2016-10-19] MEDS: IPRATROPIUM/ALBUTEROL 0.5-2.5 MG/3 ML AMPUL NEB SCH ×3 (09:01→19:56)
[2016-10-19] MEDS: ENALAPRIL MALEATE 10 MG TABLET PO SCH (09:29)
[2016-10-19] MEDS: DOXYCYCLINE HYCLATE 100 MG TABLET PO SCH ×2 (09:29→21:44)
[2016-10-19] MEDS: METOPROLOL SUCCINATE 50 MG TAB.SR.24H PO SCH ×2 (09:30→21:44)
[2016-10-19] MEDS ORDERED: FUROSEMIDE 20 MG TABLET PO SCH (10:00)
[2016-10-19] MEDS ORDERED: FUROSEMIDE 40 MG TABLET PO SCH (10:00)
--- NOTE | 2016-10-19 14:10 | Physician Advisory Note ---
Physician Advisor ProgressNote .: Pursuant to the plan for [facility], I have reviewed the medical record for this patient. Physician Advisor Statement: Possible documentation opportunities if attending agrees: 1. Is the hypoxemic resp failure acute or chronic, or does pt just have acute hypoxemia? Has there been any increased work of breathing present? 2. "Hyponatremia, suspect due to adverse effect of spironolactone, properly prescribed & correctly administered" 3. "underweight with protein-calorie malnutrition [state mild, mod, or severe] with BMI 17.4, ____[?wt loss, ?appetite loss, ]" [if possible, give specifics on intake, wt loss, loss of SQ fat & muscle mass, diminished hand international accountant strength, & clinical importance such as (A) nutritional assessment ordered, (B) modified diet or supplements ordered, (C) additional labs ordered, (D) prolonged wound healing time, (E) delayed infxn clearance] As always, if concerned about any unstable VS or abnormal labs, please comment on them & note what doing about them, & please document each day the potential clinical problems you are concerned could occur if pt not kept in hospital for tx at this time. Thanks for your help with documentation accuracy/specificity improvement! Soraya Carlisle MD [facility] Physician Advisor, Fellow of Hospital Medicine
[2016-10-19 16:07] LABS: APPEARANCE,URINE CLEAR; BILIRUBIN,URINE NEGATIVE (NEGATIVE); GLUCOSE, URINE NEGATIVE (NEGATIVE); KETONES,URINE NEGATIVE (NEGATIVE); LEUKOCYTE ESTERASE,URINE NEGATIVE (NEGATIVE); NITRITE,URINE NEGATIVE (NEGATIVE); PROTEIN,URINE 100 mg/dL (NEGATIVE); URINE SPECIFIC GRAVITY 1.006; UROBILINOGEN,URINE NEGATIVE mg/dL (<2.0)
[2016-10-19] MEDS ORDERED: MONTELUKAST SODIUM 10 MG TABLET PO SCH (18:00)
--- NOTE | 2016-10-19 20:25 | PDOC CONSULTATION ---
Consultation Consult Date: 10/19/16 Consult reason:: Acute Hyponatremia. History of Present Illness Admission Date/PCP: 10/17/16 09:22 PRATIMA GRAJEDA MD History of Present Illness: ELEAZAR MILLER is a 66 year old female admitted through the emergency department for nausea and vomiting. Patient has been sick for the past week with bronchitis. She was treated on Sunday with Bactrim and states that she took 1 pill and this made her feel "sick" so this was discontinued. She was then started on Cipro. She has felt worse despite treatment with this antibiotic. 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 Patient denied chest pain. She is having shortness of breath secondary to acute bronchitis. Admission sodium was 116 and currently is 121. She is improving to current management principles. Past Medical History Cardiac Medical History: Reports: Hypertension-primary Denies: Myocardial Infarction Pulmonary Medical History: Reports: Chronic Obstructive Pulmonary Disease (COPD) Denies: Asthma Neurological Medical History: Denies: Seizures GI Medical History: Denies: Hepatitis, Hiatal Hernia Past Surgical History Past Surgical History: Denies: Hysterectomy, Mastectomy, Pacemaker Social History Lives with: Spouse/Significant other Smoking Status: Current Every Day Smoker Cigarettes Packs Per Day: 0.5 Number of Years Smokin Last Time Smoked: 10/16/16 Frequency of Alcohol Use: None Hx Recreational Drug Use: No Hx Prescription Drug Abuse: No - Advance Directive Resuscitation Status: Full Code Family History Parental Family History Reviewed: Yes - negative for ckd Children Family History Reviewed: No Sibling(s) Family History Reviewed.: No Medication/Allergy Home Medications: Enalapril Maleate [Vasotec 20 mg Tablet] 20 mg PO DAILY 09/30/12 Metoprolol Succinate [Toprol XL 100 mg Tablet] 100 mg PO Q12 09/30/12 Montelukast Sodium [Singulair 10 mg Tablet] 10 mg PO QHS 10/18/16 Albuterol Sulfate [Proair Hfa Inhalation Aerosol 8.5 gm Mdi] 1 puff IH Q4 PRN # 1 mdi 10/20/16 Budesonide/Formoterol Fumarate [Symbicort Hfa 80-4.5 Mcg Inhaler 6.9 gm] 1 puff IH BID #1 inhaler 10/20/16 Doxycycline Hyclate [Vibramycin 100 mg Tablet] 100 mg PO Q12 #10 tablet Hydralazine HCl [Apresoline 25 mg Tablet] 25 mg PO Q8 #90 tablet 10/20/16 Allergies/Adverse Reactions: Cephalosporins Allergy (Verified 10/17/16 07:22) Hives codeine [Codeine] Allergy (Verified 10/17/16 07:22) VOMITTING Corticosteroids (Glucocorticoids) Adverse Reaction (Intermediate, Verified 10/17 14:03) Psychosis Physical Exam Vital Signs: Temp Pulse Resp BP Pulse Ox 98.1 F 82 19 127/71 H 91 L 10/19/16 16:03 10/19/16 16:03 10/19/16 16:03 10/19/16 16:03 10/19/16 16:03 Intake & Output 10/18/16 10/19/16 10/20/16 06:59 06:59 06:59 Intake Total 1890 1050 1155 Output Total 1400 Balance 1890 -350 1155 Weight 47.5 kg 49 kg General appearance: PRESENT: no acute distress Eye exam: PRESENT: conjunctiva pink, EOMI, PERRLA. ABSENT: nystagmus Ear exam: PRESENT: normal external ear exam Mouth exam: ABSENT: moist, neck supple Neck exam: ABSENT: lymphadenopathy, meningismus, tenderness, thyromegaly, tracheal deviation Respiratory exam: PRESENT: clear to auscultation woody, decreased breath sounds, rhonchi, wheezes. ABSENT: crackles Cardiovascular exam: PRESENT: +S1, +S2, systolic murmur GI/Abdominal exam: PRESENT: normal bowel sounds, soft. ABSENT: distended, firm , organomegaly, tenderness Extremities exam: ABSENT: pedal edema Neurological exam: PRESENT: alert, awake, oriented to person, oriented to place , oriented to time Skin exam: PRESENT: dry. ABSENT: mottled, rash Results Laboratory Results: 10/19/16 06:09 10/19/16 06:09 10/18/16 10/18/16 10/19/16 04:25 22:00 02:17 WBC RBC Hgb Hct MCV MCH MCHC RDW Plt Count Seg Neutrophils % Lymphocytes % Monocytes % Eosinophils % Basophils % Absolute Neutrophils Absolute Lymphocytes Absolute Monocytes Absolute Eosinophils Absolute Basophils Sodium 117.5 L* 118.1 L* Potassium 4.4 4.2 Chloride 81 L 84 L Carbon Dioxide 29 28 Anion Gap 8 6 BUN 6 L 6 L Creatinine 0.56 0.50 L Est GFR ( Amer) > 60 > 60 Est GFR (Non-Af Amer) > 60 > 60 Glucose 96 88 Calcium 8.5 8.3 L Urine Color STRAW Urine Appearance CLEAR Urine pH 6.0 Ur Specific [place] 1.006 Urine Protein 100 H Urine Glucose (UA) NEGATIVE Urine Ketones NEGATIVE Urine Blood MODERATE H Urine Nitrite NEGATIVE Ur Leukocyte Esterase NEGATIVE Urine WBC (Auto) 1 Urine RBC (Auto) 3 10/19/16 10/19/16 06:09 06:09 WBC 6.5 RBC 3.64 L Hgb 11.5 L Hct 33.1 L MCV 91 MCH 31.7 MCHC 34.8 RDW 12.5 Plt Count 233 Seg Neutrophils % 70.5 Lymphocytes % 14.9 Monocytes % 13.8 H Eosinophils % 0.2 Basophils % 0.6 Absolute Neutrophils 4.6 Absolute Lymphocytes 1.0 Absolute Monocytes 0.9 Absolute Eosinophils 0.0 Absolute Basophils 0.0 Sodium 121.3 L Potassium 4.2 Chloride 85 L Carbon Dioxide 28 Anion Gap 8 BUN 6 L Creatinine 0.52 Est GFR ( Amer) > 60 Est GFR (Non-Af Amer) > 60 Glucose 87 Calcium 8.4 Urine Color Urine Appearance Urine pH Ur Specific [place] Urine Protein Urine Glucose (UA) Urine Ketones Urine Blood Urine Nitrite Ur Leukocyte Esterase Urine WBC (Auto) Urine RBC (Auto) 10/17/16 10/17/16 10/17/16 14:37 14:37 19:35 Creatine Kinase 273 H 288 H CK-MB (CK-2) 8.70 H Troponin I 0.024 NT-Pro-B Natriuret Pep 10/17/16 10/18/16 10/18/16 19:35 01:35 01:35 Creatine Kinase 297 H CK-MB (CK-2) 8.37 H 7.04 H Troponin I 0.022 0.015 NT-Pro-B Natriuret Pep 10/18/16 01:35 Creatine Kinase CK-MB (CK-2) Troponin I NT-Pro-B Natriuret Pep 3280 H Impressions: Chest/Abdomen CTA 10/17/16 00:00 IMPRESSION: No CT angio evidence of acute pulmonary emboli or thoracic aortic dissection Obstructive lung disease Chest X-Ray 10/17/16 07:34 IMPRESSION: Obstructive lung disease Left lower lateral rib fractures age indeterminate Assessment & Plan - Diagnosis (1) Hyponatremia Is this a current diagnosis for this admission?: YesPlan: Improving sodium. Combination of hypovolemic status with high ADH. Advised to continue present management including fluid restrictions. Advised follow-up in 2 weeks time with labs. (2) Nausea & vomiting Qualifiers: Vomiting type: unspecified Vomiting Intractability: non-intractable Qualified Code(s): R11.2 - Nausea with vomiting, unspecified Is this a current diagnosis for this admission?: YesPlan: Resolved.
--- NOTE | 2016-10-19 21:13 | PROGRESS NOTE E ---
Progress Note NAME: ELEAZAR MILLER : 1950 AGE: 66Y DATE: 10/19/2016 ROOM: 305 TIME: Time spent managing patient was 25 minutes. SUBJECTIVE: After further discussion with patient regarding her sodium, she states that she does drink a lot of water throughout the day. I have tried to quantify this specifically, but from what she is telling me, it does not seem terribly excessive in that she states she is having about four 12-ounce bottles daily, but she does not drink any other fluids. That being said, she has a large 1 L hospital cup full of water and her just brought her a large orange drink from outside the hospital during our visit. Otherwise, her breathing is much improved. She has no fevers or chills. No chest pain. No abdominal pain. No nausea or vomiting. OBJECTIVE: VITAL SIGNS: Temperature 98.2, blood pressure is 107/65, pulse is 83, respirations 18. GENERAL: She is alert and in no acute distress. She answers questions appropriately. HEENT: Sclerae are nonicteric. Conjunctivae clear. Oropharynx has moist mucous membranes. NECK: No JVD. Midline trachea. RESPIRATORY: She has faint wheezes, but good air excursion, overall much improved from yesterday's evaluation. CARDIAC: Regular rate and rhythm. No murmurs, gallops, or rubs. ABDOMEN: Soft, nontender, and nondistended. Positive bowel sounds. No rebound. No guarding. EXTREMITIES: No edema, cyanosis, or clubbing. NEUROLOGIC: Cranial nerves intact. Good strength and sensation in all 4 extremities. DIAGNOSTIC DATA: Labs: Blood culture has no growth x48 hours. CBC: White blood count 6.5, hemoglobin 11.5, platelets 233. Chemistry panel is with sodium of 121, which is up from 116 on admission. Potassium is 4.2, chloride 85, bicarb 28, BUN 6, creatinine 0.52, glucose 87, calcium 8.4. TSH is normal at 2.77. Pro-BNP 3,280 on admission. Echocardiogram showed normal EF, but grade 2/4 diastolic dysfunction. ASSESSMENT AND PLAN: 1. SYMPTOMATIC HYPONATREMIA, THIS IS SLOWLY IMPROVING. I discontinued spironolactone on admission. I see that Cardiology started Lasix today. However, the patient is euvolemic at this time, so I would discontinue the Lasix, as I am trying to correct the hyponatremia. I will put the patient on a 1500 mL fluid restriction. CTA of chest was negative for mass or lesion. TSH was normal. I would like to consult Dr. Lawson of nephrology just to make sure that I am not missing anything with regard to the etiology. 2. ABNORMAL CARDIAC ENZYME LEVELS. DR. GARCIA HAS EVALUATED PATIENT. ALTHOUGH CK'S WERE ELEVATED, TROPONINS WERE NEGATIVE. He will do an outpatient stress test when patient is feeling generally better. 3. ACUTE EXACERBATION OF COPD. Continue doxycycline. Continue Pulmicort. Continue nebulizer treatments. The patient is not able to take systemic corticosteroids secondary to psychotic reaction to these. 4. HYPERTENSION. Blood pressure is now controlled on hydralazine 25 mg p.o. q. 8 hours, Toprol XL 100 mg twice daily. Vasotec 20 mg daily. 5. ANXIETY. DISPOSITION: The patient will be discharged home tomorrow if sodium improves to a more safe level. DICTATING PHYSICIAN: DEBORA BELTRE M.D. [id number] PHY#: [id number] ID: [id number] JOB#: [id number] ACCT: [id number] cc: >
[2016-10-20] MEDS: HYDRALAZINE HCL 25 MG TABLET PO SCH (07:22)
[2016-10-20] MEDS: IPRATROPIUM/ALBUTEROL 0.5-2.5 MG/3 ML AMPUL NEB SCH (07:53)
[2016-10-20] MEDS: BUDESONIDE NEB 0.5 MG/2 ML AMPUL NEB SCH (07:53)
[2016-10-20 08:13] LABS: ABSOLUTE MONOCYTES (AUTO) 0.8 10^3/uL (0.1-1.4); ABSOLUTE NEUT (AUTO) 5.2 10^3/uL (1.7-8.2); BASOPHILS % (AUTO) 0.6 % (0-2); EOSINOPHILS % (AUTO) 0.1 % (0-6); HEMATOCRIT 35.3 % (36.0-47.0); HEMOGLOBIN 11.9 g/dL (12.0-15.5); HGB HCT DIFFERENCE 0.4; LYMPHOCYTES % (AUTO) 14.5 % (13-45); MEAN CORPUSCULAR HEMOGLOBIN 31.4 pg (27.0-33.4); MEAN CORPUSCULAR HGB CONC 33.8 g/dL (32.0-36.0); MEAN CORPUSCULAR VOLUME 93 fl (80-97); MONOCYTES % (AUTO) 10.8 % (3-13); RED CELL DISTRIBUTION WIDTH 12.8 % (11.5-14.0); WHITE BLOOD COUNT 7.1 10^3/uL (4.0-10.5)
[2016-10-20] MEDS: ENOXAPARIN SODIUM INJ 40 MG/0.4 ML DISP.SYRIN SUBCUT SCH (08:13)
[2016-10-20 08:22] LABS: ANION GAP 10 (5-19); BLOOD UREA NITROGEN 9 mg/dL (7-20); CALCIUM 8.9 mg/dL (8.4-10.2); CARBON DIOXIDE 32 mmol/L (22-30); CHLORIDE 85 mmol/L (98-107); CREATININE RESULT 0.59 mg/dL (0.52-1.25); GLUCOSE 92 mg/dL (75-110); POTASSIUM 4.1 mmol/L (3.6-5.0); SODIUM 126.5 mmol/L (137-145)
--- NOTE | 2016-10-20 09:13 | PDOC PROGRESS REPORT ---
Subjective Progress Note for:: 10/19/16 Subjective:: Patient still remains significantly short of breath but claims that she is somewhat better. On questioning patient denies any chest, neck discomfort. Patient denies any other significant discomfort. Vital signs are reviewed. Physical Exam Vital Signs: Temp Pulse Resp BP Pulse Ox 97.4 F 89 22 H 152/72 H 92 10/19/16 20:28 10/19/16 20:28 10/19/16 20:28 10/19/16 20:28 10/19/16 20:28 Intake & Output 10/18/16 10/19/16 10/20/16 06:59 06:59 06:59 Intake Total 1890 1050 1155 Output Total 1400 Balance 1890 -350 1155 Weight 47.5 kg 49 kg Exam: GENERAL: well-nourished and in no acute distress. Alert and oriented x3 HEAD: Atraumatic, normocephalic. EYES: Pupils equal round and reactive to light, extraocular movements intact, sclera anicteric, conjunctiva are normal. ENT: TMs normal, nares patent, oropharynx clear without exudates. Moist mucous membranes. No oral ulcerations or bleeding gums noted NECK: supple without lymphadenopathy. Trachea is central. No cervical or axillary lymphadenopathy noted. Carotids are 2+, JVD WNL LUNGS: Respiration seems nonlabored, no significant accessory muscle action noted. Wheezing noted bilaterally but much improved air entry than before. Dullness noted. CHEST: Palpation of the chest wall shows no significant chest wall tenderness. No other significant abnormalities noted. 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 ABDOMEN: Soft, no significant tenderness appreciated, normoactive bowel sounds. No guarding, no rebound. No rigidity noted . No masses appreciated. EXTREMITIES: Pedal pulses are 1-2+, no calf tenderness noted. No clubbing or cyanosis.trace to 1+ pedal edema noted NEUROLOGICAL: Focused neurological exam showed no significant neurologic deficit. Normal speech, no focal weakness appreciated. PSYCH: Normal mood, normal affect. Judgment and insight within normal limits. SKIN: No significant ecchymosis, rash, ulcerations or signs of pruritus noted. MUSCULOSKELETAL EXAM: No significant joint swelling noted. Results Laboratory Results: 10/19/16 06:09 10/19/16 06:09 10/18/16 10/18/16 10/19/16 04:25 22:00 02:17 WBC RBC Hgb Hct MCV MCH MCHC RDW Plt Count Seg Neutrophils % Lymphocytes % Monocytes % Eosinophils % Basophils % Absolute Neutrophils Absolute Lymphocytes Absolute Monocytes Absolute Eosinophils Absolute Basophils Sodium 117.5 L* 118.1 L* Potassium 4.4 4.2 Chloride 81 L 84 L Carbon Dioxide 29 28 Anion Gap 8 6 BUN 6 L 6 L Creatinine 0.56 0.50 L Est GFR ( Amer) > 60 > 60 Est GFR (Non-Af Amer) > 60 > 60 Glucose 96 88 Calcium 8.5 8.3 L Urine Color STRAW Urine Appearance CLEAR Urine pH 6.0 Ur Specific [place] 1.006 Urine Protein 100 H Urine Glucose (UA) NEGATIVE Urine Ketones NEGATIVE Urine Blood MODERATE H Urine Nitrite NEGATIVE Ur Leukocyte Esterase NEGATIVE Urine WBC (Auto) 1 Urine RBC (Auto) 3 10/19/16 10/19/16 06:09 06:09 WBC 6.5 RBC 3.64 L Hgb 11.5 L Hct 33.1 L MCV 91 MCH 31.7 MCHC 34.8 RDW 12.5 Plt Count 233 Seg Neutrophils % 70.5 Lymphocytes % 14.9 Monocytes % 13.8 H Eosinophils % 0.2 Basophils % 0.6 Absolute Neutrophils 4.6 Absolute Lymphocytes 1.0 Absolute Monocytes 0.9 Absolute Eosinophils 0.0 Absolute Basophils 0.0 Sodium 121.3 L Potassium 4.2 Chloride 85 L Carbon Dioxide 28 Anion Gap 8 BUN 6 L Creatinine 0.52 Est GFR ( Amer) > 60 Est GFR (Non-Af Amer) > 60 Glucose 87 Calcium 8.4 Urine Color Urine Appearance Urine pH Ur Specific [place] Urine Protein Urine Glucose (UA) Urine Ketones Urine Blood Urine Nitrite Ur Leukocyte Esterase Urine WBC (Auto) Urine RBC (Auto) 10/17/16 10/17/16 10/17/16 14:37 14:37 19:35 Creatine Kinase 273 H 288 H CK-MB (CK-2) 8.70 H Troponin I 0.024 NT-Pro-B Natriuret Pep 10/17/16 10/18/16 10/18/16 19:35 01:35 01:35 Creatine Kinase 297 H CK-MB (CK-2) 8.37 H 7.04 H Troponin I 0.022 0.015 NT-Pro-B Natriuret Pep 10/18/16 01:35 Creatine Kinase CK-MB (CK-2) Troponin I NT-Pro-B Natriuret Pep 3280 H Impressions: Chest/Abdomen CTA 10/17/16 00:00 IMPRESSION: No CT angio evidence of acute pulmonary emboli or thoracic aortic dissection Obstructive lung disease Chest X-Ray 10/17/16 07:34 IMPRESSION: Obstructive lung disease Left lower lateral rib fractures age indeterminate Assessment & Plan - Diagnosis (1) Abnormal cardiac enzyme level Is this a current diagnosis for this admission?: Yes (2) Dyspnea Qualifiers: Dyspnea type: dyspnea on exertion Qualified Code(s): R06.09 - Other forms of dyspnea Is this a current diagnosis for this admission?: Yes (3) Hypertension Qualifiers: Hypertension type: essential hypertension Qualified Code(s): I10 - Essential (primary) hypertension Is this a current diagnosis for this admission?: Yes (4) Nausea & vomiting Qualifiers: Vomiting type: unspecified Vomiting Intractability: non-intractable Qualified Code(s): R11.2 - Nausea with vomiting, unspecified Is this a current diagnosis for this admission?: Yes (5) Hyponatremia Is this a current diagnosis for this admission?: Yes (6) Multiple fractures of ribs Qualifiers: Laterality: left Fracture healing: with delayed healing Is this a current diagnosis for this admission?: Yes (7) Congestive heart failure Qualifiers: Congestive heart failure type: diastolic Congestive heart failure chronicity: acute on chronic Qualified Code(s): I50.33 - Acute on chronic diastolic (congestive) heart failure Is this a current diagnosis for this admission?: Yes (8) Pulmonary hypertension Is this a current diagnosis for this admission?: Yes - Notes Notes: Abnormal cardiac enzyme, this is most likely related to diaphragmatic fatigue, possible rib fracture. Troponin elevation unremarkable. Total CK and CK-MBs have elevated. Patient does have continuing significant pulmonary issues at this point therefore will consider a stress test as an outpatient. At Dyspnea: This is predominantly due to asthma/COPD exacerbation. However improving. BNP noted to be mildly elevated. Patient placed on small dose of Lasix yesterday. Patient has shown improvement with Lasix. Patient advised salt and fluid restriction. Hypertension: Blood pressure under reasonable control. Nausea vomiting: This is improved by patient. Hyponatremia: Significant improvement noted in sodium. Continue current regimen. CHF: Improved. [place] to be predominantly right-sided. Diastolic dysfunction also present. Pulmonary hypertension: Mild to moderate. Patient will benefit from nocturnal oximetry and oxygen supplementation. This can be performed as an outpatient. - Time Time with patient: Greater than 35 minutes - CODE STATUS was discussed, patient remains full code. Surrogate decision-maker unchanged. Multiple medical problems were addressed. More than 50% of the time spent coordinating care, discussing management plans with involved caregivers. Management plans discussed with involved personnels. Medical decision making was of moderate to high complexity, patient's has multiple severe comorbidities. Medications reviewed and adjusted accordingly: Yes
[2016-10-20] MEDS: DOXYCYCLINE HYCLATE 100 MG TABLET PO SCH (09:37)
[2016-10-20] MEDS: ENALAPRIL MALEATE 10 MG TABLET PO SCH (09:38)
[2016-10-20] MEDS: METOPROLOL SUCCINATE 50 MG TAB.SR.24H PO SCH (09:38)
--- NOTE | 2016-10-20 12:40 | PDOC PROGRESS REPORT ---
Subjective Progress Note for:: 10/20/16 Subjective:: Patient feels better as regards short of breath. Patient denied any nausea or vomiting. She was noted to be sitting comfortably without oxygen and eating breakfast. On questioning patient denies any chest, neck discomfort. Patient denies any other significant discomfort. Vital signs are reviewed. Physical Exam Vital Signs: Temp Pulse Resp BP Pulse Ox 98.0 F 78 22 H 155/72 H 91 L 10/20/16 12:03 10/20/16 12:03 10/20/16 12:03 10/20/16 12:03 10/20/16 12:03 Intake & Output 10/19/16 10/20/16 10/21/16 06:59 06:59 06:59 Intake Total 1050 1515 Output Total 1400 950 Balance -350 565 Weight 49 kg 55.4 kg Exam: GENERAL: well-nourished and in no acute distress. Alert and oriented x3 HEAD: Atraumatic, normocephalic. EYES: Pupils equal round and reactive to light, extraocular movements intact, sclera anicteric, conjunctiva are normal. ENT: TMs normal, nares patent, oropharynx clear without exudates. Moist mucous membranes. No oral ulcerations or bleeding gums noted NECK: supple without lymphadenopathy. Trachea is central. No cervical or axillary lymphadenopathy noted. Carotids are 2+, JVD WNL LUNGS: Respiration seems nonlabored, no significant accessory muscle action noted. Air entry noted at both sites but lungs sounded clear, no wheezes rales or rhonchi noted. No significant dullness noted on percussion. CHEST: Palpation of the chest wall shows no significant chest wall tenderness. No other significant abnormalities noted. 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 ABDOMEN: Soft, no significant tenderness appreciated, normoactive bowel sounds. No guarding, no rebound. No rigidity noted . No masses appreciated. EXTREMITIES: Pedal pulses are 1-2+, no calf tenderness noted. No clubbing or cyanosis.trace pedal edema noted NEUROLOGICAL: Focused neurological exam showed no significant neurologic deficit. Normal speech, no focal weakness appreciated. PSYCH: Normal mood, normal affect. Judgment and insight within normal limits. SKIN: No significant ecchymosis, rash, ulcerations or signs of pruritus noted. MUSCULOSKELETAL EXAM: No significant joint swelling noted. Results Laboratory Results: 10/20/16 07:08 10/20/16 07:08 10/18/16 10/20/16 10/20/16 04:25 07:08 07:08 WBC 7.1 RBC 3.80 Hgb 11.9 L Hct 35.3 L MCV 93 MCH 31.4 MCHC 33.8 RDW 12.8 Plt Count 257 Seg Neutrophils % 74.0 Lymphocytes % 14.5 Monocytes % 10.8 Eosinophils % 0.1 Basophils % 0.6 Absolute Neutrophils 5.2 Absolute Lymphocytes 1.0 Absolute Monocytes 0.8 Absolute Eosinophils 0.0 Absolute Basophils 0.0 Sodium 126.5 L Potassium 4.1 Chloride 85 L Carbon Dioxide 32 H Anion Gap 10 BUN 9 Creatinine 0.59 Est GFR ( Amer) > 60 Est GFR (Non-Af Amer) > 60 Glucose 92 Calcium 8.9 Urine Color STRAW Urine Appearance CLEAR Urine pH 6.0 Ur Specific [place] 1.006 Urine Protein 100 H Urine Glucose (UA) NEGATIVE Urine Ketones NEGATIVE Urine Blood MODERATE H Urine Nitrite NEGATIVE Ur Leukocyte Esterase NEGATIVE Urine WBC (Auto) 1 Urine RBC (Auto) 3 10/17/16 10/17/16 10/17/16 14:37 14:37 19:35 Creatine Kinase 273 H 288 H CK-MB (CK-2) 8.70 H Troponin I 0.024 NT-Pro-B Natriuret Pep 10/17/16 10/18/16 10/18/16 19:35 01:35 01:35 Creatine Kinase 297 H CK-MB (CK-2) 8.37 H 7.04 H Troponin I 0.022 0.015 NT-Pro-B Natriuret Pep 10/18/16 01:35 Creatine Kinase CK-MB (CK-2) Troponin I NT-Pro-B Natriuret Pep 3280 H Impressions: Chest/Abdomen CTA 10/17/16 00:00 IMPRESSION: No CT angio evidence of acute pulmonary emboli or thoracic aortic dissection Obstructive lung disease Chest X-Ray 10/17/16 07:34 IMPRESSION: Obstructive lung disease Left lower lateral rib fractures age indeterminate Assessment & Plan - Diagnosis (1) Abnormal cardiac enzyme level Is this a current diagnosis for this admission?: Yes (2) Dyspnea Qualifiers: Dyspnea type: dyspnea on exertion Qualified Code(s): R06.09 - Other forms of dyspnea Is this a current diagnosis for this admission?: Yes (3) Hypertension Qualifiers: Hypertension type: essential hypertension Qualified Code(s): I10 - Essential (primary) hypertension Is this a current diagnosis for this admission?: Yes (4) Nausea & vomiting Qualifiers: Vomiting type: unspecified Vomiting Intractability: non-intractable Qualified Code(s): R11.2 - Nausea with vomiting, unspecified Is this a current diagnosis for this admission?: Yes (5) Hyponatremia Is this a current diagnosis for this admission?: Yes (6) Multiple fractures of ribs Qualifiers: Laterality: left Fracture healing: with delayed healing Is this a current diagnosis for this admission?: Yes (7) Congestive heart failure Qualifiers: Congestive heart failure type: diastolic Congestive heart failure chronicity: acute on chronic Qualified Code(s): I50.33 - Acute on chronic diastolic (congestive) heart failure Is this a current diagnosis for this admission?: Yes (8) Pulmonary hypertension Is this a current diagnosis for this admission?: Yes - Notes Notes: Abnormal cardiac enzyme, this is most likely related to diaphragmatic fatigue, possible rib fracture. Troponin elevation unremarkable. Total CK and CK-MBs have elevated. Patient does have continuing significant pulmonary issues at this point therefore will consider a stress test as an outpatient. At Dyspnea: This is predominantly due to asthma/COPD exacerbation. However improving. BNP noted to be mildly elevated. Patient was placed on small dose of Lasix. Patient has shown improvement with Lasix. Patient advised salt and fluid restriction. Low-dose Lasix. Hypertension: Blood pressure under reasonable control. Nausea vomiting: This is improved by patient. Hyponatremia: Significant improvement noted in sodium. Continue current regimen. CHF: Improved. Continue Lasix at current dose. Pulmonary hypertension: Secondary to COPD and diastolic dysfunction. Patient has been advised to quit smoking. at bedside. Discussed that she has very significant COPD/emphysema. A stress test could be performed as an outpatient. I will be happy to follow patient in the office to reschedule this. 2D echo results reviewed. Patient and her 's questions answered. - Time Time with patient: 15-25 minutes - More than 50% of the time spent coordinating care, discussing management plans with involved caregivers. Management plans discussed with involved personnels. Medical decision making was of moderate to high complexity, patient's has multiple severe comorbidities. Medications reviewed and adjusted accordingly: Yes
[2016-10-20 12:59] VITALS: BP 169/79
--- NOTE | 2016-10-20 17:17 | PDOC DISCHARGE SUMMARY ---
General - Admit/Disc Date/PCP Admission Date/Primary Care Provider: 10/17/16 09:22 PRATIMA GRAJEDA MD Discharge Date: 10/20/16 - Discharge Diagnosis (1) Hyponatremia Is this a current diagnosis for this admission?: Yes (2) COPD exacerbation Is this a current diagnosis for this admission?: Yes (3) Nausea & vomiting Is this a current diagnosis for this admission?: Yes (4) Abnormal cardiac enzyme level Is this a current diagnosis for this admission?: Yes (5) Hyperglycemia Is this a current diagnosis for this admission?: Yes (6) Hypertension Is this a current diagnosis for this admission?: Yes (7) Tobacco abuse Is this a current diagnosis for this admission?: Yes - Additional Information Resuscitation Status: Full Code Discharge Diet: Cardiac - 1500ml fluid restriction Discharge Activity: Activity As Tolerated Home Medications: Enalapril Maleate [Vasotec 20 mg Tablet] 20 mg PO DAILY 09/30/12 Metoprolol Succinate [Toprol XL 100 mg Tablet] 100 mg PO Q12 09/30/12 Montelukast Sodium [Singulair 10 mg Tablet] 10 mg PO QHS 10/18/16 Albuterol Sulfate [Proair Hfa Inhalation Aerosol 8.5 gm Mdi] 1 puff IH Q4 PRN # 1 mdi 10/20/16 Budesonide/Formoterol Fumarate [Symbicort Hfa 80-4.5 Mcg Inhaler 6.9 gm] 1 puff IH BID #1 inhaler 10/20/16 Doxycycline Hyclate [Vibramycin 100 mg Tablet] 100 mg PO Q12 #10 tablet Hydralazine HCl [Apresoline 25 mg Tablet] 25 mg PO Q8 #90 tablet 10/20/16 History of Present Illness Patient complains of: Nausea and vomiting History of Present Illness: ELEAZAR MILLER is a 66 year old female that presents to the emergency department for nausea and vomiting. Patient has been sick for the past week with bronchitis. She was treated on Sunday with Bactrim and states that she took 1 pill and this made her feel "sick" so this was discontinued. She was then started on Cipro. She has felt worse despite treatment with this antibiotic. 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 Patient was noted to have slightly elevated CK and CK-MB level. Troponin was normal. EKG showed no ST elevation or depression. Patient denied chest pain. She is having shortness of breath secondary to acute bronchitis. He is also presenting with nausea and vomiting. Hospital Course Hospital Course: Patient was admitted for hyponatremia and COPD exacerbation. With regard to hyponatremia she was placed on a 1500 mL fluid restriction. CTA of chest was negative for mass lesion. TSH was normal. She is euvolemic. She was seen by Dr. Lawson of nephrology. Hyponatremia has been slowly correcting. Sodium has improved from 116 on admission to 126 at discharge. Her spironolactone was discontinued on admission. She will need to follow-up with Dr. Lawson of nephrology after discharge. With regard to COPD exacerbation she was unable to take systemic steroids as these have caused her psychosis in the past. She was started on Pulmicort nebulizer treatments and doxycycline. She made gradual improvement. She was counseled on smoking cessation. She will be discharged on Symbicort and albuterol. Patient had slightly elevated CK and CK-MB levels. Troponin levels were normal. EKG showed sinus arrhythmia, abnormally peaked T waves in anterior lateral leads. Echocardiogram showed normal ejection fraction, grade 2/4 diastolic dysfunction, no significant valvular disease. Patient was seen by Dr. Salomon cardiology. He will arrange outpatient stress test and follow-up. Hypertension, patient was continued on Toprol-XL 100 mg twice daily, Vasotec 20 mg daily. Hydralazine 25 mg every 8 hours was added. Blood pressure stable at time of discharge. Physical Exam Vital Signs: Temp Pulse Resp BP Pulse Ox 98.0 F 78 22 H 169/79 H 91 L 10/20/16 12:53 10/20/16 12:53 10/20/16 12:53 10/20/16 12:53 10/20/16 12:53 Intake & Output 10/19/16 10/20/16 10/21/16 06:59 06:59 06:59 Intake Total 1050 1515 537 Output Total 1400 950 Balance -350 565 537 Weight 49 kg 55.4 kg GENERAL: No acute distress HEENT: Conjunctiva clear, nonicteric, moist mucous membranes, no JVD, midline trachea RESPIRATORY: Clear to auscultation bilaterally, no wheezes, no rhonchi CARDIAC: Regular rate and rhythm, no murmurs/gallops/rubs ABDOMEN: Soft, nondistended, nontender, positive bowel sounds, no rebound, no guarding EXTREMETIES: No edema, cyanosis, clubbing NEUROLOGIC: Alert, oriented to person/place/time, CN's grossly intact, no focal deficits SKIN: No rash, wounds PSYCH: Normal mood, normal affect Results Laboratory Results: 10/20/16 07:08 10/20/16 07:08 10/20/16 10/20/16 07:08 07:08 WBC 7.1 RBC 3.80 Hgb 11.9 L Hct 35.3 L MCV 93 MCH 31.4 MCHC 33.8 RDW 12.8 Plt Count 257 Seg Neutrophils % 74.0 Lymphocytes % 14.5 Monocytes % 10.8 Eosinophils % 0.1 Basophils % 0.6 Absolute Neutrophils 5.2 Absolute Lymphocytes 1.0 Absolute Monocytes 0.8 Absolute Eosinophils 0.0 Absolute Basophils 0.0 Sodium 126.5 L Potassium 4.1 Chloride 85 L Carbon Dioxide 32 H Anion Gap 10 BUN 9 Creatinine 0.59 Est GFR ( Amer) > 60 Est GFR (Non-Af Amer) > 60 Glucose 92 Calcium 8.9 10/17/16 10/17/16 10/17/16 14:37 14:37 19:35 Creatine Kinase 273 H 288 H CK-MB (CK-2) 8.70 H Troponin I 0.024 NT-Pro-B Natriuret Pep 10/17/16 10/18/16 10/18/16 19:35 01:35 01:35 Creatine Kinase 297 H CK-MB (CK-2) 8.37 H 7.04 H Troponin I 0.022 0.015 NT-Pro-B Natriuret Pep 10/18/16 01:35 Creatine Kinase CK-MB (CK-2) Troponin I NT-Pro-B Natriuret Pep 3280 H Labs- Last Values WBC 7.1 10^3/uL (4.0-10.5) 10/20/16 07:08 RBC 3.80 10^6/uL (3.72-5.28) 10/20/16 07:08 Hgb 11.9 g/dL (12.0-15.5) L 10/20/16 07:08 Hct 35.3 % (36.0-47.0) L 10/20/16 07:08 MCV 93 fl (80-97) 10/20/16 07:08 MCH 31.4 pg (27.0-33.4) 10/20/16 07:08 MCHC 33.8 g/dL (32.0-36.0) 10/20/16 07:08 RDW 12.8 % (11.5-14.0) 10/20/16 07:08 Plt Count 257 10^3/uL (150-450) 10/20/16 07:08 Seg Neutrophils % 74.0 % (42-78) 10/20/16 07:08 Lymphocytes % 14.5 % (13-45) 10/20/16 07:08 Monocytes % 10.8 % (3-13) 10/20/16 07:08 Eosinophils % 0.1 % (0-6) 10/20/16 07:08 Basophils % 0.6 % (0-2) 10/20/16 07:08 Absolute Neutrophils 5.2 10^3/uL (1.7-8.2) 10/20/16 07:08 Absolute Lymphocytes 1.0 10^3/uL (0.5-4.7) 10/20/16 07:08 Absolute Monocytes 0.8 10^3/uL (0.1-1.4) 10/20/16 07:08 Absolute Eosinophils 0.0 10^3/uL (0.0-0.6) 10/20/16 07:08 Absolute Basophils 0.0 10^3/uL (0.0-0.2) 10/20/16 07:08 Sodium 126.5 mmol/L (137-145) L 10/20/16 07:08 Potassium 4.1 mmol/L (3.6-5.0) 10/20/16 07:08 Chloride 85 mmol/L (98-107) L 10/20/16 07:08 Carbon Dioxide 32 mmol/L (22-30) H 10/20/16 07:08 Anion Gap 10 (5-19) 10/20/16 07:08 BUN 9 mg/dL (7-20) 10/20/16 07:08 Creatinine 0.59 mg/dL (0.52-1.25) 10/20/16 07:08 Est GFR ( Amer) > 60 (>60) 10/20/16 07:08 Est GFR (Non-Af Amer) > 60 (>60) 10/20/16 07:08 Glucose 92 mg/dL (75-110) 10/20/16 07:08 POC Glucose 141 mg/dL (70-110) H 10/19/16 15:16 Hemoglobin A1c % 5.5 % (4.7-6.0) 10/17/16 08:05 Serum Osmolality 245 mOsm/kg (275-301) L 10/17/16 14:37 Calcium 8.9 mg/dL (8.4-10.2) 10/20/16 07:08 Total Bilirubin 0.9 mg/dL (0.2-1.3) 10/17/16 08:05 Direct Bilirubin 0.4 mg/dL (0.0-0.4) 10/17/16 08:05 Indirect Bilirubin Not Reportable 10/17/16 08:05 Neonat Total Bilirubin Not Reportable 10/17/16 08:05 AST 63 U/L (14-36) H 10/17/16 08:05 ALT 48 U/L (9-52) 10/17/16 08:05 Alkaline Phosphatase 113 U/L (38-126) 10/17/16 08:05 Creatine Kinase 297 U/L (30-135) H 10/18/16 01:35 CK-MB (CK-2) 7.04 ng/mL (<4.55) H 10/18/16 01:35 Troponin I 0.015 ng/mL 10/18/16 01:35 NT-Pro-B Natriuret Pep 3280 pg/mL (5-900) H 10/18/16 01:35 Total Protein 8.3 g/dL (6.3-8.2) H 10/17/16 08:05 Albumin 4.7 g/dL (3.5-5.0) 10/17/16 08:05 TSH 2.77 uIU/mL (0.47-4.68) 10/17/16 08:05 Free T4 1.79 ng/dL (0.78-2.19) 10/17/16 08:05 Free T3 pg/mL 4.33 pg/mL (2.77-5.27) 10/17/16 08:05 Urine Color STRAW 10/18/16 04:25 Urine Appearance CLEAR 10/18/16 04:25 Urine pH 6.0 (5.0-9.0) 10/18/16 04:25 Ur Specific [place] 1.006 10/18/16 04:25 Urine Protein 100 mg/dL (NEGATIVE) H 10/18/16 04:25 Urine Glucose (UA) NEGATIVE mg/dL (NEGATIVE) 10/18/16 04:25 Urine Ketones NEGATIVE mg/dL (NEGATIVE) 10/18/16 04:25 Urine Blood MODERATE (NEGATIVE) H 10/18/16 04:25 Urine Nitrite NEGATIVE (NEGATIVE) 10/18/16 04:25 Urine Bilirubin NEGATIVE (NEGATIVE) 10/18/16 04:25 Urine Urobilinogen NEGATIVE mg/dL (<2.0) 10/18/16 04:25 Ur Leukocyte Esterase NEGATIVE (NEGATIVE) 10/18/16 04:25 Urine WBC (Auto) 1 /HPF 10/18/16 04:25 Urine RBC (Auto) 3 /HPF 10/18/16 04:25 Squamous Epi Cells Auto <1 /HPF 10/18/16 04:25 Urine Mucus (Auto) RARE /LPF 10/18/16 04:25 Urine Sodium 40 mmol/L (30-90) 10/20/16 04:45 Urine Ascorbic Acid NEGATIVE (NEGATIVE) 10/18/16 04:25 Impressions: Chest/Abdomen CTA 10/17/16 00:00 IMPRESSION: No CT angio evidence of acute pulmonary emboli or thoracic aortic dissection Obstructive lung disease Chest X-Ray 10/17/16 07:34 IMPRESSION: Obstructive lung disease Left lower lateral rib fractures age indeterminate Qualifiers [facility] BEING DISCHARGED WITH ANY OF THE FOLLOWING DIAGNOSIS?: No Plan Time Spent: Less than 30 Minutes
--- NOTE | 2016-10-20 17:33 | PDOC PROGRESS REPORT ---
Subjective Progress Note for:: 10/20/16 Subjective:: Patient seen this morning. She is feeling a whole lot better. She is watching her fluid intake and is not as labile as she has been before. No history of any chest pain shortness of breath no history of any headaches altered mental status. Physical Exam Vital Signs: Temp Pulse Resp BP Pulse Ox 98.0 F 78 22 H 169/79 H 91 L 10/20/16 12:53 10/20/16 12:53 10/20/16 12:53 10/20/16 12:53 10/20/16 12:53 Intake & Output 10/19/16 10/20/16 10/21/16 06:59 06:59 06:59 Intake Total 1050 1515 537 Output Total 1400 950 Balance -350 565 537 Weight 49 kg 55.4 kg General appearance: PRESENT: no acute distress Respiratory exam: PRESENT: clear to auscultation woody, rhonchi. ABSENT: crackles Cardiovascular exam: PRESENT: +S1, +S2, systolic murmur GI/Abdominal exam: PRESENT: normal bowel sounds, soft. ABSENT: distended, firm , organomegaly, tenderness Skin exam: PRESENT: dry. ABSENT: erythema, mottled, rash Results Laboratory Results: 10/20/16 07:08 10/20/16 07:08 10/20/16 10/20/16 07:08 07:08 WBC 7.1 RBC 3.80 Hgb 11.9 L Hct 35.3 L MCV 93 MCH 31.4 MCHC 33.8 RDW 12.8 Plt Count 257 Seg Neutrophils % 74.0 Lymphocytes % 14.5 Monocytes % 10.8 Eosinophils % 0.1 Basophils % 0.6 Absolute Neutrophils 5.2 Absolute Lymphocytes 1.0 Absolute Monocytes 0.8 Absolute Eosinophils 0.0 Absolute Basophils 0.0 Sodium 126.5 L Potassium 4.1 Chloride 85 L Carbon Dioxide 32 H Anion Gap 10 BUN 9 Creatinine 0.59 Est GFR ( Amer) > 60 Est GFR (Non-Af Amer) > 60 Glucose 92 Calcium 8.9 10/17/16 10/17/16 10/17/16 14:37 14:37 19:35 Creatine Kinase 273 H 288 H CK-MB (CK-2) 8.70 H Troponin I 0.024 NT-Pro-B Natriuret Pep 10/17/16 10/18/1610/18/17 19:35 01:35 01:35 Creatine Kinase 297 H CK-MB (CK-2) 8.37 H 7.04 H Troponin I 0.022 0.015 NT-Pro-B Natriuret Pep 10/18/16 01:35 Creatine Kinase CK-MB (CK-2) Troponin I NT-Pro-B Natriuret Pep 3280 H Impressions: Chest/Abdomen CTA 10/17/16 00:00 IMPRESSION: No CT angio evidence of acute pulmonary emboli or thoracic aortic dissection Obstructive lung disease Chest X-Ray 10/17/16 07:34 IMPRESSION: Obstructive lung disease Left lower lateral rib fractures age indeterminate Assessment & Plan - Diagnosis (1) Hyponatremia Is this a current diagnosis for this admission?: YesPlan: Improving sodium. Advised to continue present management including fluid restrictions. Advised follow-up in 2 weeks time with labs. (2) Nausea & vomiting Qualifiers: Vomiting type: unspecified Vomiting Intractability: non-intractable Qualified Code(s): R11.2 - Nausea with vomiting, unspecified Is this a current diagnosis for this admission?: YesPlan: Resolved.
[2016-10-20 23:42] LABS: BLOOD UREA NITROGEN 6 mg/dL (7-20); CALCIUM 8.9 mg/dL (8.4-10.2); CARBON DIOXIDE 26 mmol/L (22-30); CHLORIDE 82 mmol/L (98-107); CREATININE RESULT 0.54 mg/dL (0.52-1.25); GLUCOSE 105 mg/dL (75-110); POTASSIUM 4.7 mmol/L (3.6-5.0)
[2016-10-20 23:43] LABS: ANION GAP 11 (5-19)
[2016-10-21 19:31] LABS: SODIUM 119.2 mmol/L (137-145)
== END 2016-10-20 13:40 | disposition home or self-care (01) | DRG 640 ==
LOC: ER 07:18 → EH 09:22 → UNDOADMIN 09:38 → EH 09:38 → 3N 12:55
PROVIDERS: ADMIT Family Medicine; ATTEND Family Medicine
DX: E87.1 Hypo-osmolality and hyponatremia (principal); I50.33 Acute on chronic diastolic (congestive) heart failure; J18.9 Pneumonia, unspecified organism; J96.91 Respiratory failure, unspecified with hypoxia; J44.1 Chronic obstructive pulmonary disease with (acute) exacerbation; J20.9 Acute bronchitis, unspecified; R11.2 Nausea with vomiting, unspecified; R73.9 Hyperglycemia, unspecified; I10 Essential (primary) hypertension; F41.9 Anxiety disorder, unspecified; I27.2 Other secondary pulmonary hypertension; E88.09 Other disorders of plasma-protein metabolism, not elsewhere classified; F17.210 Nicotine dependence, cigarettes, uncomplicated; S22.42XG Multiple fractures of ribs, left side, subsequent encounter for fracture with delayed healing
CPT/HCPCS: 36415; 71020; 71275; 80048; 80053; 81001; 82550; 82553; 82962; 83036; 83880; 83930; 83935; 84300; 84439; 84443; 84481; 84484; 85025; 87040; 93005; 93010; 93306; 94640; 96361; 96374; 99291; J1650; J1956; J2060; J2405; J3480; J3490; J7030; J7620

== ENCOUNTER 2018-06-14 17:40 | Emergency (ER) | payer MEDICARE, OTHER ==
--- NOTE | 2018-06-14 19:14 | ER Document Report ---
ED Medical Screen (RME) - General Chief Complaint: Dizziness Stated Complaint: DIZZY Time Seen by Provider: 06/14/18 18:45 TRAVEL OUTSIDE OF THE [place] IN LAST 30 DAYS: No - HPI Notes: 06/14/18 19:11 Patient is a 67-year-old female that presents to the emergency department for chief complaint of dizziness. Patient started feeling dizzy last night. She describes it as an off-balance sensation and has been having her help her. Patient states that she has had a rash on her abdomen and has been taking Benadryl. She took at least 11, 25 mg tablets today. She states she took a lot yesterday but probably not 11. She does report jitteriness. She denies vision changes and confusion. She has hypertension and has not taken her afternoon meds today. ROS: GENERAL: Denies fever of chills CV: Denies chest pain PHYSICAL EXAMINATION: GENERAL: Well-appearing, well-nourished and in no acute distress. HEAD: Atraumatic, normocephalic. EYES: Pupils equal round extraocular movements intact, conjunctiva are normal. ENT: Nares patent NECK: Normal range of motion LUNGS: No respiratory distress Musculoskeletal: Normal range of motion NEUROLOGICAL: Normal speech, normal gait. PSYCH: Normal mood, normal affect. MDM: Patient seen and examined for rapid initial assessment. Vital signs reviewed. A comprehensive ED assessment and evaluation of the patient, analysis of test results and completion of the medical decision making process will be conducted by additional ED providers. - Related Data Allergies/Adverse Reactions: Cephalosporins Allergy (Verified 10/17/16 07:22) Hives codeine [Codeine] Allergy (Verified 10/17/16 07:22) VOMITTING Corticosteroids (Glucocorticoids) Adverse Reaction (Intermediate, Verified 10/17/16 14:03) Psychosis Past Medical History - Social History Chew tobacco use (# tins/day): No Frequency of alcohol use: Occasional Drug Abuse: None - Past Medical History Cardiac Medical History: Reports: Hx Hypertension Denies: Hx Heart Attack Pulmonary Medical History: Reports: Hx COPD Denies: Hx Asthma Neurological Medical History: Denies: Hx Cerebrovascular Accident, Hx Seizures Renal/ Medical History: Denies: Hx Peritoneal Dialysis GI Medical History: Denies: Hx Hepatitis, Hx Hiatal Hernia, Hx Ulcer Infectious Medical History: Denies: Hx Hepatitis Past Surgical History: Denies: Hx Hysterectomy, Hx Mastectomy, Hx Open Heart Surgery, Hx Pacemaker Physical Exam - Vital signs Vitals: Temp Pulse Resp BP Pulse Ox 97.4 F 71 16 200/108 H 98 06/14/18 17:48 06/14/18 17:48 06/14/18 17:48 06/14/18 17:48 06/14/18 17:48 Course - Vital Signs Vital signs: Temp Pulse Resp BP Pulse Ox 97.4 F 71 16 200/108 H 98 06/14/18 17:48 06/14/18 17:48 06/14/18 18:47 06/14/18 17:48 06/14/18 17:48 Doctor's Discharge - Discharge Referrals: PRATIMA GRAJEDA MD [Primary Care Provider] - Follow up as needed
--- NOTE | 2018-06-14 19:32 | RADIOLOGY REPORT (SQ) ---
EXAM DESCRIPTION: CT HEAD WITHOUT COMPLETED DATE/TIME: 06/14/2018 7:24 pm REASON FOR STUDY: dizziness COMPARISON: None. TECHNIQUE: Axial images acquired through the brain without intravenous contrast. Images reviewed wi th bone, brain and subdural windows. Additional sagittal and coronal reconstructions were generated. Images stored on PACS. All CT scanners at this facility use dose modulation, iterative reconstruction, and/or weight based d osing when appropriate to reduce radiation dose to as low as reasonably achievable (ALARA). [facility]: Dose Right [facility]: CareDose [facility]: Dose Right [facility]: Teradose 4D [facility]: LIANAI RADIATION DOSE: CT Rad equipment meets quality standard of care and radiation dose reduction techniq ues were employed. CTDIvol: 53.2 mGy. DLP: 964 mGy-cm. mGy. LIMITATIONS: None. FINDINGS: VENTRICLES: Normal size and contour. CEREBRUM: No masses. No hemorrhage. No midline shift. No evidence for acute infarction. Few scatte red areas of low density in the white matter most likely chronic small vessel ischemic changes. CEREBELLUM: No masses. No hemorrhage. No alteration of density. No evidence for acute infarction. EXTRAAXIAL SPACES: No fluid collections. No masses. ORBITS AND GLOBE: No intra- or extraconal masses. Normal contour of globe without masses. CALVARIUM: No fracture. PARANASAL SINUSES: No fluid or mucosal thickening. SOFT TISSUES: No mass or hematoma. OTHER: No other significant finding. IMPRESSION: MILD CHRONIC MICROVASCULAR ISCHEMIA. NO ACUTE IMAGING FINDINGS IN THE BRAIN. EVIDENCE OF ACUTE STROKE: NO. COMMENT: Quality ID # [id number]: Final reports with documentation of one or more dose reduction techniques (e.g., Automated exposure control, adjustment of the mA and/or kV according to patient size, use of iterative reconstruction technique) TECHNICAL DOCUMENTATION: JOB ID: [id number] [employer]- All Rights Reserved Reading location - IP/workstation name: [email or web address]
[2018-06-14] MEDS ORDERED: RINGERS SOLUTION,LACTATED 1,000 ML IV ONE (19:42)
[2018-06-14 19:46] LABS: ABSOLUTE BASOPHILS # (AUTO) 0.1 10^3/uL (0.0-0.2); ABSOLUTE EOSINOPHILS # (AUTO) 0.5 10^3/uL (0.0-0.6); ABSOLUTE LYMPHOCYTES (AUTO) 1.1 10^3/uL (0.5-4.7); ABSOLUTE MONOCYTES (AUTO) 0.7 10^3/uL (0.1-1.4); ABSOLUTE NEUT (AUTO) 5.3 10^3/uL (1.7-8.2); BASOPHILS % (AUTO) 0.9 % (0-2); EOSINOPHILS % (AUTO) 6.9 % (0-6); HEMATOCRIT 41.3 % (36.0-47.0); MEAN CORPUSCULAR HEMOGLOBIN 31.6 pg (27.0-33.4); MEAN CORPUSCULAR VOLUME 93 fl (80-97); MONOCYTES % (AUTO) 9.3 % (3-13); PLATELET COUNT 274 10^3/uL (150-450); RED BLOOD COUNT 4.45 10^6/uL (3.72-5.28); RED CELL DISTRIBUTION WIDTH 12.9 % (11.5-14.0); SEGMENTED NEUTROPHILS % (AUTO) 68.9 % (42-78); TOTAL CELLS COUNTED % (AUTO) 100 %; WHITE BLOOD COUNT 7.7 10^3/uL (4.0-10.5)
[2018-06-14] MEDS ORDERED: MECLIZINE HCL 25 MG TABLET PO ONE (19:50)
[2018-06-14] MEDS ORDERED: DIAZEPAM 5 MG TABLET PO ONE (19:51)
--- NOTE | 2018-06-14 19:58 | ER Document Report ---
ED General - General Chief Complaint: Dizziness Stated Complaint: DIZZY Time Seen by Provider: 06/14/18 18:45 Mode of Arrival: Ambulatory Information source: Patient, Relative, [facility] Records Notes: 67-year-old female with past history of hypertension presents complaining of dizziness. She has had a rash on her torso and back for the last 2 weeks and took Benadryl today and yesterday. Rash is located around her waist including her back, described as itching. Today she took 11-25 mg tablets of Benadryl spread over the day with the last dose of 4 tabs at 3 PM. She denies change in vision, decreased frequency of urination, decreased bowel movements, abdominal pain, chest pain, shortness of breath, diaphoresis, chills, fever, headache, and anxiousness. She has had a similar rash before and took Benadryl with improvement. Patient describes her dizziness started yesterday and is described as the room spinning. Worse with standing, ambulation. Denies prior similar symptoms. Has had a similar rash in the past and was seen by dermatology. TRAVEL OUTSIDE OF THE [place] IN LAST 30 DAYS: No - HPI Onset: Other Onset/Duration: Gradual Quality of pain: No pain Severity: None Associated symptoms: Other - Dizziness. denies: Chest pain, Headache, Nausea, Vomiting, Shortness of breath Exacerbated by: Standing, Walking Relieved by: Remaining still Similar symptoms previously: Yes Recently seen / treated by doctor: Yes - Related Data Allergies/Adverse Reactions: Cephalosporins Allergy (Verified 06/14/18 19:40) Hives codeine [Codeine] Allergy (Verified 06/14/18 19:40) VOMITTING Corticosteroids (Glucocorticoids) Adverse Reaction (Intermediate, Verified 06/14/18 19:40) Psychosis Past Medical History - General Information source: Patient, [facility] Records - Social History Smoking Status: Never Smoker Chew tobacco use (# tins/day): No Frequency of alcohol use: Occasional Drug Abuse: None Lives with: Family Family History: Reviewed & Not Pertinent Patient has suicidal ideation: No Patient has homicidal ideation: No - Past Medical History Cardiac Medical History: Reports: Hx Hypertension Denies: Hx Heart Attack Pulmonary Medical History: Reports: Hx COPD Denies: Hx Asthma Neurological Medical History: Denies: Hx Cerebrovascular Accident, Hx Seizures Renal/ Medical History: Denies: Hx Peritoneal Dialysis GI Medical History: Denies: Hx Hepatitis, Hx Hiatal Hernia, Hx Ulcer Infectious Medical History: Denies: Hx Hepatitis Past Surgical History: Denies: Hx Hysterectomy, Hx Mastectomy, Hx Open Heart Surgery, Hx Pacemaker - Immunizations Hx Pneumococcal Vaccination: 04/04/16 Review of Systems - Review of Systems Notes: REVIEW OF SYSTEMS: CONSTITUTIONAL : Denies fever, chills, or sweats. Denies recent illness. Denies weight loss, recent hospitalizations. EENT: Denies visual changes, eye pain. Denies sore throat, oral lesions, difficulty swallowing. CARDIOVASCULAR: Denies chest pain. Denies palpitations. Denies lower extremity edema. RESPIRATORY: Denies cough. Denies shortness of breath, wheezing. GASTROINTESTINAL: Denies abdominal pain or distention. Denies nausea, vomiti ng, or diarrhea. Denies blood in vomitus, stools, or per rectum. Denies black, tarry stools. Denies constipation. GENITOURINARY: Denies difficulty urinating, painful urination, frequency, blood in urine, or vaginal discharge. MUSCULOSKELETAL: Denies back or neck pain or stiffness. Denies joint pain or swelling. SKIN: Denies lesions or sores. HEMATOLOGIC : Denies easy bruising or bleeding. LYMPHATIC: Denies swollen glands. NEUROLOGICAL: Denies confusion or altered mental status. Denies loss of consciousness. Denies headache. Denies weakness or paralysis. Denies problems difficulty with ambulation, slurred speech. Denies sensory loss, numbness, or tingling. Denies seizures. PSYCHIATRIC: Denies anxiety or stress. Denies depression, suicidal ideation, or homicidal ideation. Denies visual or auditory hallucinations. Physical Exam - Vital signs Vitals: Temp Pulse Resp BP Pulse Ox 97.4 F 71 16 200/108 H 98 06/14/18 17:48 06/14/18 17:48 06/14/18 17:48 06/14/18 17:48 06/14/18 17:48 Interpretation: Hypertensive - Notes Notes: PHYSICAL EXAMINATION: GENERAL: Well-appearing, well-nourished and in no acute distress. HEAD: Atraumatic, normocephalic. EYES: Pupils equal round and reactive to light, extraocular movements intact, conjunctiva are normal. No nystagmus ENT: Nares patent, oropharynx clear without exudates. Moist mucous membranes. NECK: Normal range of motion, supple without lymphadenopathy LUNGS: Breath sounds clear to auscultation bilaterally and equal. No wheezes rales or rhonchi. HEART: Regular rate and rhythm without murmurs ABDOMEN: Soft, nontender, nondistended abdomen. No guarding, no rebound. No masses appreciated. Female : deferred Musculoskeletal: Normal range of motion, no pitting or edema. No cyanosis. NEUROLOGICAL: Cranial nerves grossly intact. Normal speech, normal gait. Normal sensory, motor exams. bilateral tremor of upper extremities. PSYCH: Normal mood, normal affect. SKIN: Erythematous circumferential rash around the patient's waist and back. Nonvesicular, nonpustular non-petechial. Course - Re-evaluation Re-evalutation: Laboratory 06/14/18 06/14/18 06/14/18 19:30 19:30 19:30 WBC 7.7 RBC 4.45 Hgb 14.0 Hct 41.3 MCV 93 MCH 31.6 MCHC 34.0 RDW 12.9 Plt Count 274 Seg Neutrophils % 68.9 Lymphocytes % 14.0 Monocytes % 9.3 Eosinophils % 6.9 H Basophils % 0.9 Absolute Neutrophils 5.3 Absolute Lymphocytes 1.1 Absolute Monocytes 0.7 Absolute Eosinophils 0.5 Absolute Basophils 0.1 Sodium 135.0 L Potassium 4.4 Chloride 92 L Carbon Dioxide 31 H Anion Gap 12 BUN 23 H Creatinine 0.86 Est GFR ( Amer) > 60 Est GFR (Non-Af Amer) > 60 Glucose 112 H Calcium 9.8 Troponin I < 0.[address] 06/14/18 18:42 IMPRESSION: MILD CHRONIC MICROVASCULAR ISCHEMIA. NO ACUTE IMAGING FINDINGS IN THE BRAIN. EVIDENCE OF ACUTE STROKE: NO. Temp Pulse Resp BP Pulse Ox 98 F 71 18 107/67 94 06/14/18 23:36 06/14/18 17:48 06/14/18 23:01 06/14/18 23:01 06/14/18 23:01 06/14/18 21:38 67-year-old female presents with complaint of dizziness after ingesting 11-25 mg tabs of Benadryl secondary to a pruritic rash on her torso. Patient began ta gifty the Benadryl yesterday but dizziness started last night. She describes it as the room spinning. She denies any headache, nausea, vomiting, urinary retention. She does have a baseline tremor. I contacted poison control regarding the patient's ataxia. They recommend 3-4 more hours of observation and if the patient cannot ambulate admission for observation overnight. Patient's hypertension is improving. EKG does not show prolonged QTC or widening QRS. Patient did receive meclizine, Valium. 06/14/18 21:51 Patient reevaluated states her dizziness has resolved. She is still mildly atax ic but is requesting discharge home. Agrees to let me observe her longer in the emergency department. is at the bedside and continually states that he feels taking her home. 06/14/18 23:09 Patient reevaluated again. She is alert, awake and able to stand independently. Both her and her are requesting discharge home. 06/15/18 02:34 Patient was evaluated and treated as appropriate for the patient's presenting symptoms and complaint, with consideration of any critical or life threatening conditions that may be associated with their obtained history and exam as noted above. All results were discussed with patient and her . Patient provided the opportunity to ask questions, and express concerns. Patient was educated on treatments based on their presumed diagnosis as noted above. At this time we will discharge the patient with return precautions and follow-up recommendations. Verbal discharge instructions given a the bedside. Medication warnings reviewed. Patient is in agreement with this plan and has verbalized understanding of return precautions. After careful consideration I feel that that patient can be safely discharged from the emergency department, they were advised to followup with a primary care physician in 2-3 days. Dictation on this chart was performed using voice recognition software and may result in unintended grammatical, spelling, syntax or errors. - Vital Signs Vital signs: Temp Pulse Resp BP Pulse Ox 98 F 71 18 107/67 94 06/14/18 23:36 06/14/18 17:48 06/14/18 23:01 06/14/18 23:01 06/14/18 23:01 - Laboratory Result Diagrams: 06/14/18 19:30 06/14/18 19:30 Laboratory results interpreted by me: 06/14/18 06/14/18 19:30 19:30 Eosinophils % 6.9 H Sodium 135.0 L Chloride 92 L Carbon Dioxide 31 H BUN 23 H Glucose 112 H - Diagnostic Test Radiology reviewed: Image reviewed, Reports reviewed - EKG Interpretation by Me EKG shows normal: Sinus rhythm Rate: Normal Rhythm: NSR Discharge - Discharge Clinical Impression: Benadryl overdose, Dizziness, Essential tremor Hypertension Qualifiers: Hypertension type: unspecified Qualified Code(s): I10 - Essential (primary) hypertension Condition: Good Disposition: HOME, SELF-CARE Instructions: Dizziness ([facility]), Meclizine ([facility]), Vertigo ([facility]) Additional Instructions: Please do not take any more Benadryl. These follow-up with your primary care physician regarding alternative options for your rash since you are allergic to prednisone. Please return if you experience inability to urinate, change in mental status or any other symptoms that concern you. Referrals: PRATIMA GRAJEDA MD [NO LOCAL MD] - Follow up as needed
[2018-06-14 20:07] LABS: ANION GAP 12 (5-19); BLOOD UREA NITROGEN 23 mg/dL (7-20); CALCIUM 9.8 mg/dL (8.4-10.2); CARBON DIOXIDE 31 mmol/L (22-30); CHLORIDE 92 mmol/L (98-107); GLUCOSE 112 mg/dL (75-110); POTASSIUM 4.4 mmol/L (3.6-5.0)
[2018-06-14] MEDS ORDERED: METOPROLOL SUCCINATE 50 MG TAB.SR.24H PO ONE (20:24)
[2018-06-14 23:08] VITALS: BP 107/67
--- NOTE | 2018-06-15 09:21 | EKG REPORT ---
SEVERITY:- NORMAL ECG - SINUS RHYTHM : Confirmed by: Abhinav Charles MD 15-Jun-2018 09:20:39
== END 2018-06-14 23:36 | disposition home or self-care (01) ==
LOC: ER 17:40
DX: G25.0 Essential tremor (principal); T45.0X1A Poisoning by antiallergic and antiemetic drugs, accidental (unintentional), initial encounter; X58.XXXA Exposure to other specified factors, initial encounter; R42 Dizziness and giddiness; I10 Essential (primary) hypertension; J44.9 Chronic obstructive pulmonary disease, unspecified; Z88.6 Allergy status to analgesic agent
CPT/HCPCS: 93005; 36415; 99284; 85025; 80048; 84484; 70450; 93010; A9270 ×3